=== PATIENT | male | born 1950 | race African-American/Black ===

== ENCOUNTER 2016-07-26 16:08 | Inpatient (IN) | payer OTHER ==
[2016-07-26] MEDS ORDERED: DUONEB (A & A) INH ONE ×2 (16:25→17:34)
[2016-07-26] MEDS ORDERED: DECADRON IV ONE (16:26)
--- NOTE | 2016-07-26 16:40 | PROVIDER DOCUMENTATION ---
HPI-Respiratory General <Amber Blankenship - Last Filed: 07/26/16 17:05> <Yue Ugarte - Last Filed: 07/26/16 18:54> - General Source: patient - History of Present Illness-Resp Quality of Pain: reports: tightness Severity in ED: reports: moderate Onset/Duration: reports: gradual, 3 days ago, 4 days ago Timing: reports: still present, constant Context: reports: multiple patients with similar complaints Cough Quality/Degree: reports: moderate, dry cough Current Respiratory Medication Therapy: Initiated see nurses note Modifying Factors: worse with: coughing, deep breath Associated Symptoms: reports: cough, shortness of breath, short of breath, wheezing, other (diarrhea). denies: chest pain/soreness, fever/chills, flu- like symptoms, headache, heart racing, nasal congestion, nasal drainage Similar Symptoms Previously?: Yes Recently seen or treated by another doctor?: No <Forest Roger - Last Filed: 07/27/16 12:57> - General Chief Complaint: Shortness of Breath Stated Complaint: SOB/COPD Time Seen by Provider: 07/26/16 16:21 Allergies/Adverse Reactions: Patient Allergies Allergy/AdvReac Type Severity Reaction Status Date / Time No Known Allergies Allergy Verified 07/26/16 16:16 Home Medications: Tamsulosin [Flomax] 0.4 mg PO QHS 04/25/16 Tiotropium [place] Inhaler [Spiriva] 1 puff INH RTDAILY 04/25/16 Fluticasone/Salmeterol [Advair 500-50 Diskus] 1 applic IH DAILY 05/24/16 - History of Present Illness-Resp Nature of Presenting Problem: patient is a 65 y/o M that presents to the ER with 3to4 days of cough/congestion , shortness of breath, and diarrhea. patient reports that he has episodes of shortness of breath that gets so bad that causes his diarrhea. Denies weight loss, fever/chills, or chest pain (Forest Roger) Review of Systems - Adult - REVIEW OF SYSTEMS - ADULT Constitutional: denies: chills, fever Eyes: reports: no symptoms reported Ears, Nose, Mouth & Throat: denies: ear discharge, ear pain, sinus problem, throat pain, throat swelling Cardiovascular: denies: chest pain, edema, palpitations, syncope Respiratory: reports: cough, excessive sputum production, shortness of breath, wheezing Gastrointestinal: reports: diarrhea. denies: abdominal pain, nausea, vomiting Genitourinary: reports: no symptoms reported Musculoskeletal: reports: no symptoms reported Integumentary: reports: no symptoms reported Neurological: reports: no symptoms reported Psychiatric: reports: no symptoms reported Endocrine: reports: no symptoms reported Hematologic/Lymphatic: reports: no symptoms reported Allergic/Immunologic: reports: no symptoms reported All Other Systems: Reviewed and Negative <Forest Roger - Last Filed: 07/27/16 12:57> Past History - Adult - PAST MEDICAL HISTORY-ADULT Review of Records: reports: Old Records Reviewed, Nursing Assessment Review, Medications Reviewed Cardiovascular: reports: HTN, hyperlipidemia, other (myocardial perfussion scan ; mild to moderate defects in the inferior wall) Respiratory: reports: asthma, COPD, sleep apnea Gastrointestinal: reports: GERD Genitourinary: reports: prostatitis Musculoskeletal: reports: orthopedic injury 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 Other Conditions: reports: cataract/glaucoma - PRIOR SURGERIES/PROCEDURES Surgical/Procedure History: reports: orthopedic (extremity) - PRIOR HOSPITALIZATIONS Prior Hospitalizations: reports: for similar symptoms - IMMUNIZATION STATUS Childhood Immunizations: See Nurse Assessment Flu Vaccine: See Nurse Assessment - FAMILY HISTORY Family History: reviewed, not pertinent - SOCIAL HISTORY Smoking: cigarettes, less than 1 pack/day Substance Use: marijuana Living Situation: family <Forest Roger - Last Filed: 07/27/16 12:57> Physical Exam-General - PHYSICAL EXAM-ADULT Initial Vital Signs Reviewed: Yes - CONSTITUTIONAL General Appearance: alert, mild distress - EYES Eyes: PERRL/EOMI, pink conjunctivae - HEAD, EARS, NOSE, MOUTH & THROAT HENMT: normocephalic/atraumatic, moist mucous membranes, normal ENT inspection, TMs normal, pharynx normal - NECK Neck: non-tender, full range of motion, normal inspection - RESPIRATORY Respiratory: no respiratory distress, no accessory muscle use, wheezing ( bilateral throughout) - CARDIOVASCULAR Cardiovascular: regular rate, rhythm, no edema, no murmur - GASTROINTESTINAL (ABDOMEN) Abdominal Exam: normal bowel sounds, non tender, soft, no organomegaly, no pulsatile mass - MUSCULOSKELETAL Back Exam: no CVA tenderness, no vertebral tenderness Extremity: normal range of motion, non-tender, normal inspection, no pedal edema - SKIN Integumentary: normal color, warm/dry - NEUROLOGIC Neurologic: grossly normal, no motor/sensory deficits - PSYCHIATRIC Psych/Mental Status: normal mood/affect, normal thought content, normal thought process, oriented x 3 <Forest Roger - Last Filed: 07/27/16 12:57> Progress - EKG 1 Time of EKG reading by physician:: 16:55 EKG Read and Signed by:: Doc Munguia EKG Interpretation (*Must complete 3 of following elements*): Abnormal Rate: 84 Rhythm: sinus rhythm w/marked sinus arrhythmia Fiatt: normal QRS: Q Waves present (v 1, v2,v3,v4) ST Wave: non-specific ST changes <Amber Blankenship - Last Filed: 07/26/16 17:05> - REASSESSMENT Reassessment #1 Time Reassessed: 17:36 (wheezing improved, but still significant. giving another treatment. ) Status: improving - XRAY 1 XRAY: Bilateral XRAY Study: Chest Impression: Abnormal (bilateral bronchitis, reviewed c Dr. Munguia) - CONSULTS/PCP/HOSPITALIST Notification #1 *Consult/PCP/Hospitalist*: Dr. Carroll, hospitalist Time Discussed: 18:58 Reason/Comments: COPD exacerbation, dyspnea Consult Disposition: Admit <Yue Ugarte - Last Filed: 07/26/16 18:54> <Forest Roger - Last Filed: 07/27/16 12:57> - PLAN OF CARE/RESULTS Progress/Plan/Lab Results: Vital Signs Temp Pulse Resp BP Pulse Ox 07/26/16 16:46 84 17 164/097 99 07/26/16 16:32 76 20 96 07/26/16 16:12 97.9 F 99 H 20 178/104 96 No Known Allergies Allergy (Verified 07/26/16 16:16) Albuterol [Albuterol Neb] 2.5 mg INH RTQ4H PRN #1 neb 04/25/16 Prednisone 10 mg PO DAILY #21 tablet 04/25/16 Tamsulosin [Flomax] 0.4 mg PO QHS 04/25/16 Tiotropium [place] Inhaler [Spiriva] 1 puff INH RTDAILY 04/25/16 Amlodipine [Norvasc] 10 mg PO DAILY #30 tablet 05/12/16 Lisinopril/Hydrochlorothiazide [Lisinopril-Hctz 20-12.5 mg Tab] 1 each PO DAILY #30 tablet 05/12/16 Fluticasone/Salmeterol [Advair 500-50 Diskus] 1 applic IH DAILY 05/24/16 Hydrocodone/APAP 5 mg/325 mg [[place]-5] 1 tab PO Q6H PRN PRN #12 tablet 05/24/16 Lansoprazole [Prevacid] 30 mg PO DAILY #30 capsule. 05/24/16 Laboratory 07/26/16 07/26/16 16:35 16:35 WBC 4.19 L RBC 4.79 Hgb 14.2 Hct 42.0 MCV 87.7 MCH 29.6 MCHC 33.8 RDW Std Deviation 13.7 Plt Count 138 MPV 10.3 Immature Gran % (Auto) 0.2 Neut % (Auto) 42.8 Lymph % (Auto) 45.8 [place] % (Auto) 9.3 Eos % (Auto) 1.4 Baso % (Auto) 0.5 Immature Gran # (Auto) 0.01 Neut # (Auto) 1.79 Lymph # (Auto) 1.92 [place] # (Auto) 0.39 Eos # (Auto) 0.06 Baso # (Auto) 0.02 Sodium 139 Potassium 3.2 L Chloride 101 Carbon Dioxide 27 Anion Gap 11 BUN 13 Creatinine 1.1 Estimated GFR/1.73 m2 > 60 BUN/Creatinine Ratio 12 Glucose 102 Calculated Osmolality 278 Calcium 8.9 Total Bilirubin 0.40 AST 21 ALT 16 Alkaline Phosphatase 85 Total Protein 7.4 Albumin 4.1 Globulin 3.0 Albumin/Globulin Ratio 1.0 Orders Category Date Time Status Saline Loc NOW Care 07/26/16 16:25 Active CHEST-2 VIEWS [RAD] Stat Exams 07/26/16 16:25 Taken CBC WITH ELECTRONIC DIFF [HEME] Stat Lab 07/26/16 16:35 Completed COMPREHENSIVE METABOLIC PANEL [CHEM] Stat Lab 07/26/16 16:35 Completed Albuterol 2.5MG/Ipratrop 0.5MG [Duoneb (A & A)] Med 07/26/16 16:25 Discontinued 3 ml INH NOW ONE Albuterol 2.5MG/Ipratrop 0.5MG [Duoneb (A & A)] Med 07/26/16 17:34 Discontinued 3 ml INH NOW ONE Dexamethasone [Decadron] Med 07/26/16 16:26 Discontinued 4 mg IV NOW ONE Aerosol Treatments Routine Oth 07/26/16 17:34 Active Aerosol Treatments Stat Oth 07/26/16 16:26 Completed Aerosol Treatments Stat Oth 07/26/16 17:34 Active EKG [EKG] Stat Ther 07/26/16 16:31 Draft (Yue Ugarte) Vital Signs Temp Pulse Resp BP Pulse Ox 07/27/16 11:27 88 14 07/27/16 07:53 98.5 F 88 28 H 201/92 98 07/27/16 07:40 90 20 92 L 07/27/16 04:00 98 F 79 16 188/97 100 07/27/16 00:00 98.3 F 93 H 20 167/81 95 07/26/16 23:18 107 H 18 96 07/26/16 20:45 107 H 18 186/84 96 07/26/16 20:23 98.3 F 110 H 22 142/088 94 L 07/26/16 19:23 94 H 18 166/098 99 07/26/16 18:05 73 18 97 07/26/16 17:55 73 18 95 07/26/16 16:46 84 17 164/097 99 07/26/16 16:32 76 20 96 07/26/16 16:12 97.9 F 99 H 20 178/104 96 No Known Allergies Allergy (Verified 07/26/16 16:16) Albuterol [Albuterol Neb] 2.5 mg INH RTQ4H PRN #1 neb 04/25/16 Tamsulosin [Flomax] 0.4 mg PO QHS 04/25/16 Tiotropium [place] Inhaler [Spiriva] 1 puff INH RTDAILY 04/25/16 Fluticasone/Salmeterol [Advair 500-50 Diskus] 1 applic IH DAILY 05/24/16 Hydrocodone/APAP 5 mg/325 mg [[place]-5] 1 tab PO Q6H PRN PRN #12 tablet 05/24/16 Lansoprazole [Prevacid] 30 mg PO DAILY #30 capsule. 11/06/16 Amlodipine [Norvasc] 10 mg PO DAILY #30 tablet 07/27/16 Levofloxacin [Levaquin] 500 mg PO DAILY #7 tablet 07/27/16 Prednisone 10 mg PO DAILY #30 tablet 07/27/16 Dietary Diet Heart Healthy Diet Start WedJul 279 I&O 07/26/16 07/27/16 07/28/16 06:59 06:59 06:59 Intake Total 1350 Balance 1350 Laboratory 07/26/16 07/26/16 07/26/16 19:29 18:55 16:35 WBC 4.19 L RBC 4.79 Hgb 14.2 Hct 42.0 MCV 87.7 MCH 29.6 MCHC 33.8 RDW Std Deviation 13.7 Plt Count 138 MPV 10.3 Immature Gran % (Auto) 0.2 Neut % (Auto) 42.8 Lymph % (Auto) 45.8 [place] % (Auto) 9.3 Eos % (Auto) 1.4 Baso % (Auto) 0.5 Immature Gran # (Auto) 0.01 Neut # (Auto) 1.79 Lymph # (Auto) 1.92 [place] # (Auto) 0.39 Eos # (Auto) 0.06 Baso # (Auto) 0.02 Specimen Type ARTERIAL Sample Site R RADIAL pH 7.49 H pCO2 36 pO2 61 HCO3 27.9 H Base Excess 4.1 H Oxyhemoglobin 91.2 L ABG O2 Sat (Calculated) 18.2 ABG O2 Saturation 94.5 L ABG Carboxyhemoglobin 2.50 ABG Methemoglobin 1.0 Von Test YES A-a O2 Difference 44.0 Total Hemoglobin 14.2 Lactate 1.00 Blood Gas Modality ROOM AIR FiO2 % 21.0 Sodium Potassium Chloride Carbon Dioxide Anion Gap BUN Creatinine Estimated GFR/1.73 m2 BUN/Creatinine Ratio Glucose Calculated Osmolality Calcium Total Bilirubin AST ALT Alkaline Phosphatase Total Protein Albumin Globulin Albumin/Globulin Ratio Urine Source CLEAN CATCH Urine Color YELLOW Urine Clarity CLEAR Urine pH 6.5 Ur Specific [place] 1.010 Urine Protein 1+(30 mg/dL) A Urine Ketones NEGATIVE Urine Blood 1+ A Urine Nitrite NEGATIVE Urine Bilirubin NEGATIVE Urine Urobilinogen NORMAL Urine Microscopic RBC <10 Urine WBC 1+ A Urine Microscopic WBC <10 Ur Epithelial Cells <10 Urine Crystals NONE SEEN Urine Bacteria 1+ Urine Casts NONE SEEN Urine Yeast NONE SEEN Urine Glucose NEGATIVE 07/26/16 16:35 WBC RBC Hgb Hct MCV MCH MCHC RDW Std Deviation Plt Count MPV Immature Gran % (Auto) Neut % (Auto) Lymph % (Auto) [place] % (Auto) Eos % (Auto) Baso % (Auto) Immature Gran # (Auto) Neut # (Auto) Lymph # (Auto) [place] # (Auto) Eos # (Auto) Baso # (Auto) Specimen Type Sample Site pH pCO2 pO2 HCO3 Base Excess Oxyhemoglobin ABG O2 Sat (Calculated) ABG O2 Saturation ABG Carboxyhemoglobin ABG Methemoglobin Von Test A-a O2 Difference Total Hemoglobin Lactate Blood Gas Modality FiO2 % Sodium 139 Potassium 3.2 L Chloride 101 Carbon Dioxide 27 Anion Gap 11 BUN 13 Creatinine 1.1 Estimated GFR/1.73 m2 > 60 BUN/Creatinine Ratio 12 Glucose 102 Calculated Osmolality 278 Calcium 8.9 Total Bilirubin 0.40 AST 21 ALT 16 Alkaline Phosphatase 85 Total Protein 7.4 Albumin 4.1 Globulin 3.0 Albumin/Globulin Ratio 1.0 Urine Source Urine Color Urine Clarity Urine pH Ur Specific [place] Urine Protein Urine Ketones Urine Blood Urine Nitrite Urine Bilirubin Urine Urobilinogen Urine Microscopic RBC Urine WBC Urine Microscopic WBC Ur Epithelial Cells Urine Crystals Urine Bacteria Urine Casts Urine Yeast Urine Glucose Orders Category Date Time Status Admit - [facility] Routine AdmDCTranf 07/26/16 18:56 Ordered Does patient desire to be vacc [QM] ONCE Care 07/26/16 21:37 Active Previous Flu Vaccine THIS SEAS [QM] ONCE Care 07/26/16 21:37 Active Saline Loc NOW Care 07/26/16 16:25 Completed Heart Healthy Diet Diet 07/27/16 01:39 Active CHEST-2 VIEWS [RAD] Stat Exams 07/26/16 16:25 Completed ABG [RESP] Routine Lab 07/26/16 18:55 Completed BLOOD CULTURE [BLDCUL] Stat Lab 07/26/16 18:42 Results CBC WITH ELECTRONIC DIFF [HEME] Stat Lab 07/26/16 16:35 Completed COMPREHENSIVE METABOLIC PANEL [CHEM] Stat Lab 07/26/16 16:35 Completed UA [URINALYSIS PL W/POSS RFLX CULT] [URINALYSIS] Stat Lab 07/26/16 19:29 Completed URINE CULTURE [RM] Routine Lab 07/26/16 19:50 Results Acetaminophen [Tylenol] Med 07/27/16 12:42 Active 650 mg PO Q4H PRN PRN Albuterol 2.5MG/Ipratrop 0.5MG [Duoneb (A & A)] Med 07/26/16 16:25 Discontinued 3 ml INH NOW ONE Albuterol 2.5MG/Ipratrop 0.5MG [Duoneb (A & A)] Med 07/26/16 17:34 Discontinued 3 ml INH NOW ONE Albuterol 2.5MG/Ipratrop 0.5MG [Duoneb (A & A)] Med 07/26/16 20:39 Discontinued 3 ml INH Q4H PRN PRN Albuterol [Albuterol Neb] Med 07/26/16 18:00 Discontinued 2.5 mg INH NOW ONE Albuterol [Albuterol Neb] Med 07/27/16 00:22 Active 2.5 mg INH RTQ4H PRN Amlodipine [Norvasc] Med 07/27/16 09:00 Active 10 mg PO DAILY Azithromycin 500 mg/Ns [Zithromax 500 mg/Ns] 250 ml Med 07/26/16 20:39 Discontinued IV NOW Dexamethasone [Decadron] Med 07/26/16 16:26 Discontinued 4 mg IV NOW ONE Fluticasone/[place] 500/50 INH [Advair 500/50 Diskus] Med 07/27/16 09:00 Discontinued 1 puff INH DAILY Fluticasone/[place] 500/50 INH [Advair 500/50 Diskus] Med 07/28/16 07:30 Active 1 puff INH RTDAILY Hydrocodone/APAP 5 mg/325 mg [[place]-5] Med 07/27/16 00:22 Active 1 each PO Q6H PRN PRN Levofloxacin [Levaquin] Med 07/27/16 10:39 Discontinued 500 mg PO NOW ONE Methylprednisolone Sod Succ [Solu-Medrol] Med 07/26/16 20:39 Active 40 mg IV Q6H Omeprazole [Prilosec] Med 07/27/16 07:00 Active 20 mg PO DAILY@0700 Tamsulosin [Flomax] Med 07/27/16 21:00 Active 0.4 mg PO BID Tamsulosin [Flomax] Med 07/27/16 21:00 Discontinued 0.4 mg PO QHS Tiotropium [place] Inhaler [Spiriva] Med 07/27/16 07:30 Active 1 puff INH RTDAILY Aerosol Treatments Routine Oth 07/26/16 17:34 Completed Aerosol Treatments Routine Oth 07/26/16 18:00 Completed Aerosol Treatments Routine Oth 07/26/16 20:39 Completed Aerosol Treatments Stat Oth 07/26/16 16:26 Completed Aerosol Treatments Stat Oth 07/26/16 17:34 Completed Aerosol Treatments Stat Oth 07/26/16 18:00 Completed Aerosol Treatments Stat Oth 07/26/16 20:39 Completed EKG [EKG] Stat Ther 07/26/16 16:31 Draft Transfer/Admit Order [TRANSFER] Routine Transfer 07/26/16 18:56 Completed (Forest Roger) Departure <Amber Blankenship - Last Filed: 07/26/16 17:05> - Departure Time of Disposition Order: 17:57 Certified Medical Emergency: Emergent <Yue Ugarte - Last Filed: 07/26/16 18:54> - Departure Time of Disposition Order: 18:50 Certified Medical Emergency: Emergent <Forest Roger - Last Filed: 07/27/16 12:57> - Departure DIAGNOSIS: COPD exacerbation Disposition: ADMITTED INPATIENT 09 Condition: Stable Attestation - Scribe Verification/Attestation Scribe:: Amber Blankenship Acting as Scribe for:: Doc Munguia Scribe documention review:: This chart was documented by a scribe and accurately reflects the service the provider performed and the decisions made by the provider. <Amber Blankenship - Last Filed: 07/26/16 17:05> - Physician/ Mid-level Attestation Patient care was provided by Mid-level provider (AUDOGRAPH OPERATOR/PA):: Yes Mid-level provider:: Yue Ugarte Mid-level documentation review:: The Mid-level provider documentation, treatment plan and medical decision making was reviewed by the physician who agrees with all treatment and medical decision making by the P. <Yue Ugarte - Last Filed: 07/26/16 18:54> - Scribe Verification/Attestation Scribe:: Forest Roger Acting as Scribe for:: Yue Ugarte Scribe documention review:: This chart was documented by a scribe and accurately reflects the service the provider performed and the decisions made by the provider. - Physician/ Mid-level Attestation Patient care was provided by Mid-level provider (AUDOGRAPH OPERATOR/PA):: Yes Mid-level provider:: Yue Ugarte Mid-level documentation review:: The Mid-level provider documentation, treatment plan and medical decision making was reviewed by the physician who agrees with all treatment and medical decision making by the MLP. <Forest Roger - Last Filed: 07/27/16 12:57> Physician Attestation
[2016-07-26 16:44] LABS: MANUAL DIFF NEEDED? NO
[2016-07-26 16:52] LABS: BASO% 0.5 % (0.0-0.8); EOS# 0.06 X1000 (0.0-0.7); EOS% 1.4 % (0.0-10.0); HEMOGLOBIN 14.2 g/dL (14.0-18.0); IMM GRAN# 0.01 X1000 (0.0-0.04); IMM GRAN% 0.2 % (0.0-0.5); LYMPH# 1.92 X1000 (1.2-3.4); LYMPH% 45.8 % (20.5-51.1); MCH 29.6 PG (27-31); MCHC 33.8 g/dL (33-37); MCV 87.7 FL (81-99); MONO# 0.39 X1000 (0.11-0.59); MONO% 9.3 % (1.7-9.3); MPV 10.3 FL (7.4-10.4); NEUT% 42.8 % (42.2-75.2); PLT 138 X1000 (130-400); RBC 4.79 XMIL (4.7-6.1)
[2016-07-26 17:02] LABS: AGAP 11; ALBUMIN 4.1 g/dL (3.5-5.0); ALKALINE PHOSPHATASE 85 U/L (32-122); BUN 13 mg/dL (8-22); CALCIUM 8.9 mg/dL (8.8-10.2); CHLORIDE 101 mmol/L (98-107); COSMO 278; GOT 21 U/L (10-34); GPT 16 U/L (10-44); POTASSIUM 3.2 mmol/L (3.5-5.1); SODIUM 139 mmol/L (136-145); TCO2 27 mmol/L (25-35); TOTAL PROTEIN 7.4 g/dL (6.3-8.3)
--- NOTE | 2016-07-26 17:02 | EKG Report ---
Test Performed on : 07/26/2016 4:55:06 PM Test Reason : CP Blood Pressure : / mmHG Vent. Rate : 084 BPM Atrial Rate : 084 BPM P-R Int : 154 ms QRS Dur : 084 ms QT Int : 370 ms P-R-T Axes : 074 -04 172 degrees QTc Int : 437 ms Sinus rhythm. with marked sinus arrhythmia. Possible Left atrial enlargement Anteroseptal infarct (cited on or before 07-JUN-2009) ST & T wave abnormality, consider inferolateral ischemia Abnormal ECG When compared with ECG of 24-MAY-2016 03:27, Vent. rate has increased BY 30 BPM T wave inversion less evident in Inferior leads Unconfirmed Result
[2016-07-26] MEDS ORDERED: ALBUTEROL NEB INH ONE (18:00)
[2016-07-26 19:09] LABS: BE 4.1 mmoll (-3.0-3.0); BLOOD TYPE ARTERIAL; DRAW SITE R RADIAL; O2(CT) 18.2 mL/dL (15.0-23.0); PCO2(98.6) 36 mmHg (35-45); PO2(98.6) 61 mmHg (60-100); SAMPLE BLOOD; SAO2 94.5 % (95.0-100.0); THB 14.2 g/dL (11.5-17.4); pH(98.6) 7.49 (7.35-7.45)
[2016-07-26 19:14] LABS: ALLEN TEST YES; MODALITY ROOM AIR
[2016-07-26 19:30] LABS: BILIRUBIN URINE NEGATIVE (NEGATIVE); BLOOD URINE 1+ (NEGATIVE); CLARITY CLEAR (CLEAR); COLOR YELLOW; GLUCOSE URINE NEGATIVE (NEGATIVE); LEUKOCYTES URINE 1+ (NEGATIVE); NITRITE URINE NEGATIVE (NEGATIVE); PH URINE 6.5; PROTEIN URINE 1+(30 mg/dL) mg/dL (NEGATIVE); URINE SOURCE CLEAN CATCH; UROBILINOGEN URINE NORMAL
[2016-07-26 19:50] LABS: URINE CAST NONE SEEN /LPF; URINE CRYSTAL NONE SEEN /HPF; URINE CULTURE PL NEEDED? YES; URINE EPITHELIAL CELLS <10 /HPF (<10); URINE RBC <10 /HPF (<10); URINE WBC <10 /HPF (<10)
[2016-07-26] MEDS ORDERED: ZITHROMAX 500 MG/NS 250 ML IV ONE (20:39)
[2016-07-26] MEDS: SOLU-MEDROL IV SCH (21:20)
[2016-07-26] MEDS: DUONEB (A & A) INH PRN (23:18)
[2016-07-27] MEDS ORDERED: NORCO-5 PO PRN (00:22)
[2016-07-27] MEDS ORDERED: ALBUTEROL NEB INH PRN (00:22)
[2016-07-27] MEDS: SOLU-MEDROL IV SCH ×2 (04:12→08:37)
--- NOTE | 2016-07-27 06:53 | Diag Imaging Result Document ---
PROCEDURE NAME: CHEST-2 VIEWS - 07/26/2016 FRONTAL AND LATERAL CHEST, TWO VIEWS: COMPARISON: Compared to 05/24/2016. FINDINGS: The lungs are hyperexpanded. The heart is not enlarged. The pulmonary vessels are small. No pleural effusions. No consolidation. Mild increased markings in the medial right base. I believe the majority of these represent normal vasculature, however, there may be a small underlying infiltrate. IMPRESSION: 1. Emphysema. 2. I suspect there is a small infiltrate in the medial right base.
[2016-07-27] MEDS ORDERED: PRILOSEC PO SCH (07:00)
[2016-07-27] MEDS ORDERED: SPIRIVA INH SCH (07:30)
[2016-07-27] MEDS: DUONEB (A & A) INH PRN (07:39)
[2016-07-27 07:58] VITALS: BP 201/92
[2016-07-27] MEDS ORDERED: ADVAIR 500/50 DISKUS INH SCH (09:00)
[2016-07-27] MEDS ORDERED: NORVASC PO SCH (09:00)
[2016-07-27] MEDS ORDERED: LEVAQUIN PO ONE (10:39)
[2016-07-27] MEDS ORDERED: TYLENOL PO PRN (12:42)
--- NOTE | 2016-07-27 14:11 | HISTORY AND PHYSICAL ---
CHIEF COMPLAINT: Shortness of breath. HISTORY OF PRESENT ILLNESS: This is a 65-year-old male with history of COPD, presenting with shortness of breath and cough for the last 2 days. He was up at a in [place], exposed to the cold weather. He feels like that triggered breathing difficulty. I think he has had some subjective fevers and chills, cough productive of dark sputum, and came in for evaluation now. He is on breathing treatments. He was given albuterol nebs through the ER. He does not have a primary care doctor. He has seen Dr. Vera in the past. He has been having some issues though with incontinence associated with shortness of breath, especially urinary incontinence. It looks like he already has a diagnosis of BPH and is on Flomax. Came in with wheezing. It was felt necessary to admit him because his wheezing had not improved with consecutive breathing treatments. The following day, his breathing has improved. He is breathing comfortably on room air, 96%. Occasional rhonchi but no wheezing. Clinically he felt stable I think to go home at this point, but admitted for COPD exacerbation. PAST MEDICAL HISTORY: 1. Hypertension. 2. BPH. 3. COPD, not on home oxygen. PAST SURGICAL HISTORY: Denies. FAMILY HISTORY: Reviewed, noncontributory. SOCIAL HISTORY: No ethanol. He smokes up to a pack and a half a day. He has done that for over 25 years. ALLERGIES: No known drug allergies. MEDICATIONS: He is on Flomax, Spiriva, Advair, albuterol nebs, prednisone taper, lisinopril hydrochlorothiazide which may not be the best option for him, Norvasc 10 [place], and Prevacid. PHYSICAL EXAMINATION: VITAL SIGNS: Blood pressure was high 201/92, that was this morning, heart rate of 88, respiratory rate 20, temperature 98.5 degrees, 98% on room air. GENERAL: A well-developed male, in no acute distress. HEAD: Normocephalic, atraumatic. EYES: Pupils equal, round, reactive to light. Extraocular movements were intact. EAR/NOSE/THROAT: Moist mucous membranes. NECK: Supple. CARDIOVASCULAR: Regular rate and rhythm. No murmurs, gallops, or rubs. PULMONARY: Bilateral breath sounds with occasional rhonchi. GI: Soft, nontender, nondistended. Bowel sounds are positive. EXTREMITIES: No clubbing or cyanosis. LYMPHATICS: No peripheral edema. NEUROLOGICAL: Nonfocal. LABORATORY DATA: White count is normal. Chemistry showed a potassium of 3.2 which I hope was supplemented. PROBLEM LIST: 1. Chronic obstructive pulmonary disease exacerbation. Chest x-ray is clear. He is clinically improved with breathing treatments, azithromycin and nebulizer. He may have some early pneumonia it looks like at the right base. We will continue antibiotics, steroids. I think clinically he is improving and can discharge him. I will probably discharge him on doxycycline just to give him a weeks' worth of treatment. I will just do Levaquin I think for 7 days. The patient has clinically stabilized and will discharge him home. 2. Hypertension. I am going to adjust his medications just because of the lisinopril may predispose him to cough, so we will start losartan instead. 3. Benign prostatic hypertrophy. He is still symptomatic. We will refer him to . He has seen Dr. Dash in the past. We will send him back to Dr. Blankenship' clinic and increase his Flomax to b.i.d. DISPOSITION: Likely home today.
--- NOTE | 2016-07-27 14:11 | DISCHARGE SUMMARY ---
DISCHARGE DIAGNOSES: 1. Chronic obstructive pulmonary disease exacerbation. 2. Early right middle lobe pneumonia. 3. Benign prostatic hypertrophy. 4. Hypertension. ADMIT DIAGNOSIS: Chronic obstructive pulmonary disease exacerbation. HISTORY AND HOSPITAL COURSE: Briefly, this is a 65-year-old male with COPD, presenting with exacerbation for last 2 days. Significant wheezing in the ER, did not improve with breathing treatments, but within 24 hours has improved with the breathing treatments, steroids, and antibiotics. There is a questionable early right middle lobe infiltrates so we will adjust his antibiotics to Levaquin and follow. DISCHARGE MEDICATIONS: Flomax 0.4 b.i.d., Spiriva daily, Advair 550 b.i.d., albuterol nebs q.6, [place] p.r.n., Prevacid 30 daily, losartan 100 daily, will probably do 50 daily. For some reason he is not on Norvasc so will start Norvasc 10 daily. DISPOSITION: Follow up with PCP; we need to set 1 up. Follow up with Dr. Vera in 1-2 weeks. Follow up with Dr. Blankenship in 1-2 weeks. TIME SPENT: 32 minute discharge. -1
[2016-07-27] MEDS ORDERED: FLOMAX PO SCH ×2 (21:00)
[2016-07-28] MEDS ORDERED: ADVAIR 500/50 DISKUS INH SCH (07:30)
== END 2016-07-27 15:18 | disposition home or self-care (01) | DRG 190 ==
LOC: P.ED 16:08 → OBSVTOIN 19:48 → P.MEDSURG 19:48
PROVIDERS: ATTEND Internal Medicine
DX: J44.0 Chronic obstructive pulmonary disease with (acute) lower respiratory infection (principal); J18.9 Pneumonia, unspecified organism; J44.1 Chronic obstructive pulmonary disease with (acute) exacerbation; J45.909 Unspecified asthma, uncomplicated; I10 Essential (primary) hypertension; E78.5 Hyperlipidemia, unspecified; K21.9 Gastro-esophageal reflux disease without esophagitis; G47.30 Sleep apnea, unspecified; N40.0 Benign prostatic hyperplasia without lower urinary tract symptoms; F17.210 Nicotine dependence, cigarettes, uncomplicated; Z79.899 Other long term (current) drug therapy; Z79.52 Long term (current) use of systemic steroids
CPT/HCPCS: 71020; 80053; 81001; 82805; 85025; 87040; 87088; 93005; 94640; 94761; 96372; J0456; J1100; J2920

== ENCOUNTER 2018-11-10 09:39 | Inpatient (IN) ==
[2018-11-10] MEDS ORDERED: ASPIRIN PO ONE (10:15)
--- NOTE | 2018-11-10 10:31 | EKG Report ---
Test Performed on : 11/10/2018 09:48:03 AM Test Reason : CP Blood Pressure : / mmHG Vent. Rate : 085 BPM Atrial Rate : 085 BPM P-R Int : 148 ms QRS Dur : 090 ms QT Int : 354 ms P-R-T Axes : 055 003 166 degrees QTc Int : 421 ms Normal sinus rhythm. Cannot rule out Anteroseptal infarct (cited on or before 07-JUN-2009) T wave abnormality, consider lateral ischemia Abnormal ECG When compared with ECG of 25-MAY-2018 17:30, Nonspecific T wave abnormality now evident in Inferior leads Unconfirmed Result
--- NOTE | 2018-11-10 10:31 | Diag Imaging Result Doc PS360 ---
CHEST-2 VIEWS - 11/10/2018 INDICATION: CP COMPARISON: 04/20/2018 FINDINGS: There is dense focal infiltrate in the superior segment of the right lower lobe. There is also some hazy infiltrate in the left lower lobe. Heart size and pulmonary vascularity is normal. No pneumothorax or pleural effusion. IMPRESSION: Bilateral infiltrates compatible with pneumonia. Recommend treatment and short-term follow-up chest x-ray in one-2 weeks. Electronically signed by Jarord Echevarria 11/10/2018 10:29 AM
[2018-11-10 11:04] LABS: BASO# 0.01 X1000 (0.0-0.2); BASO% 0.2 % (0.0-0.8); EOS# 0.03 X1000 (0.0-0.7); EOS% 0.6 % (0.0-10.0); HEMATOCRIT 37.8 % (42.0-52.0); HEMOGLOBIN 12.5 g/dL (14.0-18.0); IMM GRAN# 0.03 X1000 (0.0-0.04); IMM GRAN% 0.6 % (0.0-0.5); LYMPH# 0.52 X1000 (1.2-3.4); LYMPH% 10.4 % (20.5-51.1); MCH 29.7 PG (27-31); MCHC 33.1 g/dL (33-37); MCV 89.8 FL (81-99); MONO# 0.26 X1000 (0.11-0.59); MONO% 5.2 % (1.7-9.3); MPV 9.7 FL (7.4-10.4); NEUT# 4.16 X1000 (1.4-6.5); PLT 182 X1000 (130-400); RBC 4.21 XMIL (4.7-6.1); RDW 14.4 % (11.5-14.5); WBC 5.01 X1000 (4.8-10.8)
[2018-11-10 11:13] LABS: INR 0.85; PROTIME 12.3 Seconds (11.0-16.0)
[2018-11-10 11:14] LABS: PTT 25.5 Seconds (22.3-41.8)
[2018-11-10 11:33] LABS: AGAP 10; ALB/GLOB RATIO 1.8; ALBUMIN 4.2 g/dL (3.5-5.0); ALKALINE PHOSPHATASE 53 U/L (32-122); BUN 26 mg/dL (8-22); CHLORIDE 106 mmol/L (98-107); CK PROFILE 163 U/L (24-204); COSMO 291; CREATININE 1.2 mg/dL (0.7-1.2); ESTIMATED GFR > 60; GLUCOSE 116 mg/dL (70-104); GOT 14 U/L (10-34); GPT 17 U/L (10-44); SODIUM 143 mmol/L (136-145); TCO2 27 mmol/L (25-35); TOTAL BILIRUBIN 0.22 mg/dL (0.20-1.00); TOTAL PROTEIN 6.5 g/dL (6.3-8.3)
--- NOTE | 2018-11-10 12:49 | PROVIDER DOCUMENTATION ---
This chart was entered by Nini Clay Scribe, acting as scribe for Justen Salmeron MD. HPI-Chest Pain - General Chief Complaint: Chest Pain Stated Complaint: CP Time Seen by Provider: 11/10/18 10:27 Source: patient Allergies/Adverse Reactions: Patient Allergies Allergy/AdvReac Type Severity Reaction Status Date / Time No Known Allergies Allergy Verified 11/10/18 10:40 Home Medications: Home Medication List Medication Instructions Recorded Confirmed Last Taken Type Tamsulosin [Flomax] 0.4 mg PO QHS 04/25/16 10/17/17 10/17/17 08:00 History Tiotropium [place] Inhaler 1 puff INH RTDAILY 04/25/16 10/17/17 10/17/17 08:00 History [Spiriva] Fluticasone/Salmeterol [Advair 1 applic IH BID 05/24/16 10/17/17 10/17/17 08:00 History 500-50 Diskus] Amlodipine [Norvasc] 10 mg PO DAILY #30 tablet 07/27/16 10/17/17 10/17/17 08:00 Rx Lisinopril/Hydrochlorothiazide 1 each PO DAILY 01/28/17 10/17/17 10/17/17 08:00 History [Lisinopril-Hctz 20-25 mg Tab] Ipratropium/Albuterol Sulfate 3 ml IH PRN PRN 03/17/17 10/17/17 03/23/17 History [Iprat-Albut 0.5-3(2.5) mg/3 ml] Montelukast Sodium [Singulair] 10 mg PO DAILY 03/17/17 10/17/17 10/17/17 08:00 History Roflumilast [Daliresp] 500 mcg PO DAILY 03/17/17 10/17/17 10/17/17 08:00 History Hydrocodone/APAP 7.5 mg/325 mg 1 ea PO Q6H PRN PRN #15 tab 10/17/17 Unknown Rx [Milmay-7.5] Ibuprofen [Motrin] 600 mg PO Q6HR #30 tab 09/13/18 Unknown Rx - History of Present Illness-CP Nature of Presenting Problem: Patient is a 68 year old male who presents with left side chest pain that radiates to jaw that started this morning. Reports shortness of breath with chest pain. Denies nausea and vomiting. Reports he is currently receiving chemo for lung cancer every 2 weeks. Location: reports: other (left side) Chest Pain Radiation: reports: jaw Quality of Pain: reports: aching Severity in ED: mild Onset/Duration: this morning Timing: still present, getting worse Context/Activities at Onset: reports: light activity Modifying Factors: improves with: nothing Associated Symptoms: reports: shortness of breath Similar Symptoms Previously?: No Recently Seen Here or By Another Healthcare Provider: Yes Review of Systems - Adult - REVIEW OF SYSTEMS - ADULT Constitutional: reports: no symptoms reported. denies: chills, fever, fatique Eyes: reports: no symptoms reported Ears, Nose, Mouth & Throat: reports: no symptoms reported Cardiovascular: reports: see HPI, chest pain. denies: heart murmur, irregular heart rate Respiratory: reports: see HPI, shortness of breath. denies: cough, wheezing Gastrointestinal: reports: no symptoms reported Genitourinary: reports: no symptoms reported Musculoskeletal: reports: no symptoms reported Integumentary: reports: no symptoms reported Neurological: reports: no symptoms reported Psychiatric: reports: no symptoms reported Endocrine: reports: no symptoms reported Hematologic/Lymphatic: reports: no symptoms reported Allergic/Immunologic: reports: no symptoms reported All Other Systems: Reviewed and Negative Past History - Adult - PAST MEDICAL HISTORY-ADULT Review of Records: reports: Nursing Assessment Review, Medications Reviewed, Social history reviewed & non-contributory. 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 negative: cachetic, lethargic, slow to respond - HEAD, EARS, NOSE, MOUTH & THROAT HENMT: normal ENT inspection. negative: angioedema, hearing deficit - RESPIRATORY Respiratory: chest non-tender, lungs clear, normal breath sounds. negative: crackles, rhonchi - CARDIOVASCULAR Cardiovascular: normal peripheral pulses, regular rate, rhythm. negative: tachycardia, systolic murmur - GASTROINTESTINAL (ABDOMEN) Abdominal Exam: normal bowel sounds, non tender, soft. negative: guarding, rebound - MUSCULOSKELETAL Extremity: non-tender, normal inspection. negative: deformity, erythema, swelling - SKIN Integumentary: normal color, normal turgor, warm/dry. negative: cyanosis, ecchymosis, erythema, jaundice - NEUROLOGIC Neurologic: grossly normal. negative: aphasia, facial droop - PSYCHIATRIC Psych/Mental Status: normal mood/affect, oriented x 3. negative: anxious Progress - PLAN OF CARE/RESULTS Progress/Plan/Lab Results: Vital Signs - 8 hr 11/10/18 09:51 11/10/18 10:01 11/10/18 10:10 Temperature 98.0 F Pulse Rate 78 86 85 Respiratory Rate 20 17 19 Blood Pressure 136/76 157/93 O2 Sat by Pulse Oximetry 98 96 95 11/10/18 10:20 11/10/18 10:30 11/10/18 10:31 Temperature Pulse Rate 87 109 H 105 H Respiratory Rate 16 19 17 Blood Pressure 151/92 O2 Sat by Pulse Oximetry 95 96 95 11/10/18 10:40 11/10/18 10:48 11/10/18 10:50 Temperature Pulse Rate 89 79 87 Respiratory Rate 14 18 19 Blood Pressure 149/81 O2 Sat by Pulse Oximetry 96 96 95 11/10/18 11:00 11/10/18 11:02 11/10/18 11:10 Temperature Pulse Rate 75 79 79 Respiratory Rate 19 22 22 Blood Pressure 185/90 O2 Sat by Pulse Oximetry 96 97 97 11/10/18 11:20 11/10/18 11:30 11/10/18 11:32 Temperature Pulse Rate 83 71 72 Respiratory Rate 16 12 12 Blood Pressure 161/80 O2 Sat by Pulse Oximetry 95 94 L 95 11/10/18 12:02 11/10/18 12:30 11/10/18 12:32 Temperature Pulse Rate 69 76 75 Respiratory Rate 12 19 19 Blood Pressure 145/81 137/93 O2 Sat by Pulse Oximetry 97 97 97 11/10/18 12:40 11/10/18 12:50 11/10/18 13:00 Temperature Pulse Rate 77 88 77 Respiratory Rate 18 24 18 Blood Pressure O2 Sat by Pulse Oximetry 97 96 95 11/10/18 13:02 Temperature Pulse Rate 75 Respiratory Rate 20 Blood Pressure 142/80 O2 Sat by Pulse Oximetry 93 L Laboratory Results - last 24 hr 11/10/18 11/10/18 11/10/18 10:49 10:49 10:49 WBC 5.01 RBC 4.21 L Hgb 12.5 L Hct 37.8 L MCV 89.8 MCH 29.7 MCHC 33.1 RDW Std Deviation 14.4 Plt Count 182 MPV 9.7 Immature Gran % (Auto) 0.6 H Neut % (Auto) 83.0 H Lymph % (Auto) 10.4 L [place] % (Auto) 5.2 Eos % (Auto) 0.6 Baso % (Auto) 0.2 Immature Gran # (Auto) 0.03 Neut # (Auto) 4.16 Lymph # (Auto) 0.52 L [place] # (Auto) 0.26 Eos # (Auto) 0.03 Baso # (Auto) 0.01 PT INR PTT (Actin FS) Sodium 143 Potassium 4.0 Chloride 106 Carbon Dioxide 27 Anion Gap 10 BUN 26 H Creatinine 1.2 Estimated GFR/1.73 m2 > 60 BUN/Creatinine Ratio 22 Glucose 116 H Calculated Osmolality 291 Calcium 9.0 Total Bilirubin 0.22 AST 14 ALT 17 Alkaline Phosphatase 53 Creatine Kinase 163 Troponin T [id number] Pept 60 Total Protein 6.5 Albumin 4.2 Globulin 2.3 Albumin/Globulin Ratio 1.8 11/10/18 11/10/18 10:49 10:49 WBC RBC Hgb Hct MCV MCH MCHC RDW Std Deviation Plt Count MPV Immature Gran % (Auto) Neut % (Auto) Lymph % (Auto) [place] % (Auto) Eos % (Auto) Baso % (Auto) Immature Gran # (Auto) Neut # (Auto) Lymph # (Auto) [place] # (Auto) Eos # (Auto) Baso # (Auto) PT 12.3 INR 0.85 PTT (Actin FS) 25.5 Sodium Potassium Chloride Carbon Dioxide Anion Gap BUN Creatinine Estimated GFR/1.73 m2 BUN/Creatinine Ratio Glucose Calculated Osmolality Calcium Total Bilirubin AST ALT Alkaline Phosphatase Creatine Kinase Troponin T < 0.010 [id number] Pept Total Protein Albumin Globulin Albumin/Globulin Ratio Orders Category Date Time Status Cardiac Monitoring DIRECTED Care 11/10/18 10:15 Active Oxygen Therapy- ED Nursing DIRECTED Care 11/10/18 10:15 Active Saline Loc NOW Care 11/10/18 10:15 Active CHEST-2 VIEWS [RAD] Stat Exams 11/10/18 10:15 Completed BLOOD CULTURE [BLDCUL] Stat Lab 11/10/18 13:03 Received CBC WITH ELECTRONIC DIFF [HEME] Stat Lab 11/10/18 10:49 Completed CK PROFILE [SP CHEM] Stat Lab 11/10/18 10:49 Completed COMPREHENSIVE METABOLIC PANEL [CHEM] Stat Lab 11/10/18 10:49 Completed PRO B-NATRIURETIC PEPTIDE Stat Lab 11/10/18 10:49 Completed PROTIME WITH INR [COAG] Stat Lab 11/10/18 10:49 Completed PTT [COAG] Stat Lab 11/10/18 10:49 Completed TROPONIN T Stat Lab 11/10/18 10:49 Completed TROPONIN T Stat Lab 11/10/18 13:02 Received Aspirin Med 11/10/18 10:15 Discontinued 325 mg PO NOW ONE CefTRIAXONE [Rocephin] 1 gm Med 11/10/18 13:18 Active 0.9% Sodium Chloride Inj [Ns] 50 ml IV NOW CP/SOB/Palp >45 yrs of Age Stat Oth 11/10/18 10:15 Ordered EKG [EKG] Stat Ther 11/10/18 10:15 Draft EKG [EKG] Stat Ther 11/10/18 12:46 Draft Result Diagrams: 11/10/18 10:49 11/10/18 10:49 - EKG 1 Time of EKG reading by physician:: 09:48 EKG Read and Signed by:: Justen Salmeron EKG Interpretation (*Must complete 3 of following elements*): Abnormal (T wave abnormality, consider lateral ischemia) Rate: 85 Rhythm: normal sinus rhythm AL Interval: normal Comments: cannot rule out anteroseptal infarct, age undetermined 2 Time of EKG reading by physician:: 12:55 EKG Read and Signed by:: Justen Salmeron EKG Interpretation (*Must complete 3 of following elements*): Abnormal (T wave abnormality, consider inferolateral ischemia) Rate: 71 Rhythm: sinus rhythm with premature atrial complexes Comments: septal infarct, age undetermined; - XRAY 1 XRAY Study: Chest Impression: See EMR Report ( CHEST-2 VIEWS - 11/10/2018 INDICATION: CP COMPARISON: 04/20/2018 FINDINGS: There is dense focal infiltrate in the superior segment of the right lower lobe. There is also some hazy infiltrate in the left lower lobe. Heart size and pulmonary vascularity is normal. No pneumothorax or pleural effusion. IMPRESSION: Bilateral infiltrates compatible with pneumonia. Recommend treatment and short-term follow-up chest x-ray in one-2 weeks. Electronically signed by Jarrod Echevarria 11/10/2018 10:29 AM 11/10/18 1029 Interpreting Physician: Jarrod Echevarria MD Dictated Date/Time: 11/10/18 1028 cc: Melissa Terrell; Bernie Ruiz MD) - CONSULTS/PCP/HOSPITALIST Notification #1 *Consult/PCP/Hospitalist*: MARCE Kramer for Hospitalist Time Discussed: 12:42 Reason/Comments: Dr. Salmeron consulted with Nia about patient. Consult Disposition: Will see in ED, Admit Departure - Departure Date of Disposition Decision: 11/10/18 Time of Disposition Decision: 12:43 DIAGNOSIS: Chest pain, Pneumonia Disposition: ADMITTED INPATIENT 09 Certified Medical Emergency: Emergent Condition: Fair Referrals and Follow-Ups: Bernie Ruiz MD [Primary Care Provider] - - Critical Care Note This patient required my direct & personal management of CC.: No Attestation - Physician/ AKILA Attestation Patient care was provided by Advanced Practice Provider:: No The physician spent face to face time with patient:: Yes Advanced Practice Provider documentation review:: Supervising physician onsite and consulted in the evaluation and care of this patient. The physician did have a face to face encounter with the patient. This chart was documented by the indicated scribe, (Nini Clay Scribe) and accurately reflects the services I performed and decisions made by me, Justen Salmeron MD, as attested by the provider's signature.
--- NOTE | 2018-11-10 13:00 | EKG Report ---
Test Performed on : 11/10/2018 12:55:29 PM Test Reason : cp Blood Pressure : / mmHG Vent. Rate : 071 BPM Atrial Rate : 071 BPM P-R Int : 148 ms QRS Dur : 082 ms QT Int : 394 ms P-R-T Axes : 052 012 210 degrees QTc Int : 428 ms Sinus rhythm. with premature atrial complexes. Septal infarct (cited on or before 07-JUN-2009) T wave abnormality, consider inferolateral ischemia Abnormal ECG When compared with ECG of 10-NOV-2018 09:48, (Unconfirmed) premature atrial complexes. are now present Questionable change in initial forces of Septal leads T wave inversion now evident in Inferior leads Unconfirmed Result
[2018-11-10] MEDS ORDERED: ROCEPHIN 1 GM in NS 50 ML IV ONE (13:18)
[2018-11-10] MEDS ORDERED: MORPHINE IV PRN (14:41)
[2018-11-10] MEDS ORDERED: TYLENOL PO PRN (14:41)
[2018-11-10] MEDS ORDERED: NITROGLYCERIN SL PRN (14:41)
[2018-11-10] MEDS ORDERED: DUONEB (A & A) INH PRN ×2 (14:44→19:40)
[2018-11-10] MEDS ORDERED: NORCO-7.5 PO PRN (14:44)
--- NOTE | 2018-11-10 17:26 | HISTORY AND PHYSICAL ---
PRIMARY CARE PROVIDER: No one. CHIEF COMPLAINT: Chest pain. HISTORY OF PRESENT ILLNESS: Mr. Jose Duncan is a 68-year-old -[place] male with a medical history of right middle lobe lung cancer followed by Dr. Padgett and was diagnosed in March 2018. Apparently he has a chronic right chest pain underneath the right breast area but he states he is having chest pain that is more midsternal over the past month. It is usually worse in the mornings. He gets an acid taste in his mouth and it feels like it does radiate into the jaw and causes dizziness and lightheadedness. He has a cough that is nonproductive. He denies any fevers or chills. The right chest pain he states is worse with inspiration. For the cancer he gets a medication that is IV every 2 weeks. He is unsure what the name of the medication is. We will consult Dr. Padgett. Will do serial cardiac enzymes, echocardiogram and he does have a little bit of edema in the lower extremities, but it is not bad. He is chest pain free at this time. Will do a stress test in the morning if we need to and can consult Cardiology. PAST MEDICAL HISTORY: 1. Hypertension. 2. BPH. 3. COPD no home oxygen. 4. Obstructive sleep apnea and wears CPAP at night. 5. Lung cancer in the right middle lobe followed by Dr. Padgett, diagnosed in March 2018. No surgeries. He has been getting medication every 2 weeks IV and states he is due for one tomorrow. 6. Right chronic chest pain in the location of the lung cancer. States this has been going on for a long time. PAST SURGICAL HISTORY: 1. He has had a right lung biopsy. 2. Bilateral eye laser surgery for cataracts. 3. Transurethral resection of the prostate. SOCIAL HISTORY: Quit smoking in March 2018 but prior to that he smoked one pack per day since the age of 12. He denies alcohol or illicit drug use. FAMILY HISTORY: Mother had leukemia. He is not sure of father. ALLERGIES: No known drug allergies. HOME MEDICATIONS: 1. Hydralazine 25 mg p.o. t.i.d. 2. Hydrochlorothiazide 25 mg p.o. t.i.d. 3. Durvalumab (which he gets every 2 weeks IV). 4. Albuterol and Atrovent nebulizers every 3 hours as needed. 5. Lisinopril 40 mg p.o. daily. 6. Neurontin 300 mg p.o. nightly. 7. Prednisone 20 mg p.o. as directed. 8. Singulair 10 mg p.o. daily. 9. Zofran 8 mg p.o. every 8 hours p.r.n. 10.Motrin 600 mg p.o. every 6 hours p.r.n. 11.[place]ission 7.5 mg one tablet every 6 hours p.r.n. 12.Norvasc 10 mg p.o. daily. REVIEW OF SYSTEMS: A 14-point review of systems complete and all negative except for those mentioned in the above HPI. PHYSICAL EXAMINATION: VITAL SIGNS: Temperature 98.0, heart rate 69, respiratory rate 16, blood pressure 144/95. O2 saturation 97% on 2 L nasal cannula. He is 6 feet 0 inches tall, 197 pounds. BMI 26.7. GENERAL: Mr. Jose Duncan is a 68-year-old -[place] male in no acute distress. He is able to answer questions appropriately. HEENT: Atraumatic. Normocephalic. Pupils equal, round and reactive to light. Extraocular movements are intact. Mucous membranes are moist. Poor dentition. NECK: Trachea is midline. LUNGS: Clear to auscultation bilateral breath sounds. No accessory muscle use or work with breathing noted. CARDIOVASCULAR: S1 and S2. Regular rate and rhythm. No rubs, gallops or murmurs. He has 1+ lower extremity ankle edema. Posterior dorsalis and radial pulses negative JVD or carotid bruits. ABDOMEN: Soft. Nontender. Nondistended. Positive bowel sounds x4. EXTREMITIES: He moves all extremities equally with full range of motion. NEUROLOGIC: Alert and oriented x3. Follows commands. Sensory intact. SKIN: Warm, dry and intact. LABORATORY DATA: White blood cells 5000, hemoglobin 12, hematocrit 37, platelet count 182. INR 0.85, PTT 25.5, sodium 143, potassium 4.0, BUN 26, creatinine 1.2, glucose 116, calcium 9.0, bilirubin 0.22, AST 14, ALT 17. CK 146, troponin less than 0.1 x2. Pro-BNP 60. Albumin 4.2. IMAGING: A chest x-ray with bilateral infiltrates compatible with pneumonia. Recommend treatment and short-term followup chest x-ray in 1 or 2 weeks. EKG; first EKG rate 85, QTc 421, normal sinus rhythm. There may have been some ST elevation noted in V1 but there is only one lead. There were no contiguous leads that went with it, so a repeat EKG was performed. It was a rate of 71, QTc 428. It still only looks like there is one contiguous lead with ST elevation so it looks like V1. ASSESSMENT AND PLAN: 1. Atypical chest pain. It almost sounds like it could be gastrointestinal related as it mostly happens in the mornings after he has woken up. He does get dizzy and lightheaded with it. He has a cough that is nonproductive. It could be related to where his lung cancer is. Cardiac enzymes are negative so far. There were some questionable T wave ST-T elevation in V1 but it did not appear to be in any other contiguous leads. Will order a stress test in the morning and have Cardiology see him for any other recommendations. Keep him on aspirin. Check his cholesterol and hemoglobin A1c in the morning. Do serial cardiac enzymes. 2. Hypertension. He was on and off antihypertensives. Currently I am going to hold the hydrochlorothiazide. Continue the amlodipine and the hydralazine scheduled and also the lisinopril. Will monitor the blood pressure. 3. Chronic obstructive pulmonary disease. No home oxygen. No exacerbation noted. Will continue with his p.r.n. albuterol and Atrovent nebulizers as needed. 4. Benign prostatic hypertrophy. I do not see here he is on any medicine for that. 5. History of obstructive sleep apnea. He says he wears CPAP at night. He can resume that as well. 6. Lung cancer history. Will consult Dr. Padgett. Apparently he is on an IV medication every 2 weeks. 7. Deep vein thrombosis prophylaxis, Lovenox. Dictated by MARCE King for Bismark Carroll MD cc: MARCE King MD
[2018-11-10] MEDS: APRESOLINE PO SCH (17:45)
[2018-11-10] MEDS: SODIUM CHLORIDE 0.9% INJ SCH (17:45)
[2018-11-10] MEDS: PROTONIX IV SCH (17:45)
--- NOTE | 2018-11-10 20:37 | HISTORY AND PHYSICAL ---
ADDENDUM: Chief complaint was chest pain. He noticed chest pain earlier today with pain on the left side of his chest radiating to his jaw. He had associated discomfort. He reports no cardiac history in the past, but it sounds like he had a history of cardiac arrest, and he went to [facility] where he was diagnosed with lung cancer. I do not know the other circumstances there. We may need to get those records, but he is having issues with that. He still reports pain with deep inspiration. We will probably do a CT of his chest just to better evaluate it. It reports here that he has pneumonia, but I do not know how this is in relationship to his other air space disease, but reportedly he has a dense lesion, but I do not know if that is true pneumonia or if that is something else. I am going to pursue a CT with contrast since he has a pneumonia and since he has a cancer history. There was no resection and he has gotten chemotherapy and radiation therapy, so we will get a better look there. Trying to get records from [facility] as well, but he is undergoing an echocardiogram and myocardial perfusion scan when available. Exam reveals some wheezing and expiratory wheezes. We will go ahead and initiate some therapy for that, and we will follow closely. This is a [id number] encounter note with Niajohn Lee. cc: Bismark Carroll MD
[2018-11-10] MEDS: DUONEB (A & A) INH SCH (23:42)
[2018-11-11] MEDS: PROTONIX IV SCH ×2 (02:53→16:17)
[2018-11-11] MEDS: SODIUM CHLORIDE 0.9% INJ SCH ×2 (02:53→16:17)
[2018-11-11] MEDS: PRILOSEC PO SCH (06:35)
[2018-11-11 07:38] LABS: BASO# 0.01 X1000 (0.0-0.2); BASO% 0.2 % (0.0-0.8); EOS# 0.05 X1000 (0.0-0.7); EOS% 1.1 % (0.0-10.0); HEMATOCRIT 37.5 % (42.0-52.0); HEMOGLOBIN 12.1 g/dL (14.0-18.0); LYMPH# 1.01 X1000 (1.2-3.4); LYMPH% 23.2 % (20.5-51.1); MCHC 32.3 g/dL (33-37); MCV 92.8 FL (81-99); MONO# 0.56 X1000 (0.11-0.59); MONO% 12.9 % (1.7-9.3); MPV 9.5 FL (7.4-10.4); NEUT# 2.72 X1000 (1.4-6.5); NEUT% 62.6 % (42.2-75.2); PLT 168 X1000 (130-400); RBC 4.04 XMIL (4.7-6.1); RDW 14.6 % (11.5-14.5); WBC 4.35 X1000 (4.8-10.8)
[2018-11-11 07:55] LABS: HEMOGLOBIN A1C 5.6 % (4.8-6.0)
[2018-11-11 08:04] LABS: AGAP 9; ALB/GLOB RATIO 1.4; ALBUMIN 3.6 g/dL (3.5-5.0); ALKALINE PHOSPHATASE 50 U/L (32-122); BUN 22 mg/dL (8-22); CALCIUM 8.6 mg/dL (8.8-10.2); CHLORIDE 108 mmol/L (98-107); COSMO 292; CREATININE 1.1 mg/dL (0.7-1.2); ESTIMATED GFR > 60; GLUCOSE 93 mg/dL (70-104); GOT 12 U/L (10-34); GPT 14 U/L (10-44); POTASSIUM 3.7 mmol/L (3.5-5.1); SODIUM 145 mmol/L (136-145); TCO2 28 mmol/L (25-35); TOTAL BILIRUBIN 0.23 mg/dL (0.20-1.00); TOTAL PROTEIN 6.2 g/dL (6.3-8.3)
--- NOTE | 2018-11-11 08:11 | EKG Report ---
Test Performed on : 11/11/2018 07:36:38 AM Test Reason : chest pain Blood Pressure : / mmHG Vent. Rate : 086 BPM Atrial Rate : 086 BPM P-R Int : 152 ms QRS Dur : 086 ms QT Int : 366 ms P-R-T Axes : 060 028 206 degrees QTc Int : 437 ms Normal sinus rhythm. Septal infarct (cited on or before 07-JUN-2009) T wave abnormality, consider inferior ischemia T wave abnormality, consider anterolateral ischemia Abnormal ECG When compared with ECG of 10-NOV-2018 12:55, (Unconfirmed) premature atrial complexes. are no longer present Questionable change in initial forces of Septal leads Confirmed by Lubna ROSENBAUM, Mesfin ([id number]) on 11/11/2018 8:44:31 AM
[2018-11-11 08:21] LABS: INR 0.96; PROTIME 13.6 Seconds (11.0-16.0); PTT 25.8 Seconds (22.3-41.8)
[2018-11-11] MEDS: DUONEB (A & A) INH SCH ×5 (09:37→23:07)
--- NOTE | 2018-11-11 09:59 | Diag Imaging Result Doc PS360 ---
EXAM: CT THORAX W/CONTRAST INDICATION: pneumonia, hx lung cancer TECHNIQUE: This exam was performed using automated exposure control, adjustment of mA or kV according to patient size, and/or use of iterative reconstruction technique. COMPARISON: CT PET scan from an outside facility dated 08/18/2018. FINDINGS: The airspace consolidation in the right lung mainly in the perihilar and infrahilar regions seen on the previous study is still present but is less extensive. It was hypermetabolic on the previous study. This may, at least in part, represent radiotherapy pneumonitis that has improved. As was stated on the previous report from the PET scan, underlying neoplasm being obscured by the consolidation cannot be excluded. Mild/moderate pulmonary emphysema is again noted. In the right hilar region, there is a nodular density on image 53 of series 2 that measures 2.2 x 1.9 cm axially. It is not clearly identified on the previous unenhanced head CT. Lymphadenopathy or intercurrent perihilar mass cannot be excluded. No other new lymphadenopathy or new parenchymal lung mass is appreciated. It is no pleural fluid collection and no pneumothorax. Limited views of the upper abdomen are essentially unremarkable. No new bony lesions are appreciated to indicate local bony metastatic disease. IMPRESSION: 1.Persistent consolidation in the right perihilar/infrahilar region on the right that has improved overall during the interval and may represent improving radiation pneumonitis. 2.Nodular focus in the right hilar region not identified on the previous study. New lymphadenopathy or recurrent perihilar neoplasm cannot be excluded. 3.Otherwise, the chest is essentially stable. Electronically signed by Leroy Cole 11/11/2018 9:57 AM
--- NOTE | 2018-11-11 11:12 | ECHO REPORT ---
ORDER DATE: 11/10/2018 PROCEDURE: 2D echocardiogram. SUMMARY OF THE 2-DIMENSIONAL IMAGIN. Technically suboptimal study. Poor acoustic window. 2. Pulmonic valve not well visualized. 3. Aortic valve leaflets were trileaflet. 4. Mitral valve was normal. 5. Tricuspid valve was normal. 6. Normal left ventricular cavity size. Estimated ejection fraction of 65 to 70 percent. 7. There is trace mitral regurgitation. 8. Peak velocity across the aortic valve less than 2 m/sec. There is no aortic stenosis or regurgitation. 9. Hyperdynamic left ventricular systolic function noted. 10. Trace tricuspid regurgitation. Peak velocity across the tricuspid valve was 2.3 m/sec. Pulmonary artery systolic pressure of 31 mmHg. 11. There is no significant interventricular gradient. Hyperdynamic circulation was noted. Maximum gradient was 2.5 m/sec. 12. There is no pericardial effusion or obvious intracardiac mass or thrombus seen. cc: MD Nia Syed CRNP
--- NOTE | 2018-11-11 11:29 | CARDIOLOGY CONSULTATION ---
DATE: 11/11/2018 REQUESTING PHYSICIAN: Hospitalist Service REASON FOR CONSULTATION: Chest pain. HISTORY OF PRESENT ILLNESS: Mr. Duncan is a 68-year-old black gentleman who is undergoing chemotherapy under Dr. Padgett at the [facility]. He went to regular appointment with her yesterday, and he was sitting at the waiting area of the [facility] when all of a sudden he started developing left-sided chest discomfort, which he points to midway between the left anterior axillary line and the left midclavicular line. The pain was going up and down and moved up to the left side of the jaw. At that time, he notified the attendant. They let Dr. Padgett know that this was going on, and in turn, they requested immediate referral to the emergency room department. Over there, they have done the usual EKG that shows diffuse repolarization abnormality in the apical leads. They did a chest x-ray that shows bilateral infiltrates compatible with pneumonia. The patient states that the pain has subsided. It only lasted about 10 minutes at most. He admits to having some abdominal fullness and feeling constipated. He says that at times he gets a pleuritic discomfort in the left side of the chest, and that moves to the hypogastric area. This has been going on for a while. At any rate, this morning, on 11/11/2018, he is feeling back to his normal self, and they are going to arrange for a stress test this morning. PAST MEDICAL HISTORY: Positive for a diagnosis of lung cancer. He was found to have this condition last year, and he has been under the care of the Oncology Service. They turned him down as a poor surgical candidate in [place]. They felt that his surgical risk was prohibitive due to limited lung capacity. Diagnosis was made somewhere around 03/2018. He does have a history of hypertension. He has hyperlipidemia. He has had COPD, neuropathy, question of stroke in the past. PAST SURGICAL HISTORY: He had hemorrhoid surgery, right hand surgery, and LASIK eye surgery. SOCIAL HISTORY: He is . He is disabled. He has had 5 children. He quit smoking in 03/2018. The patient was diagnosed with coronary heart disease in 2014. At that time, Dr. Coppola performed a heart cath that showed 20% LAD stenosis and a distal 90% right coronary artery stenosis that was handled with administration of intracoronary nitroglycerin. The patient has had abnormal EKG for quite some time. His last stress test from 01/2017 showed a large size, moderate grade fixed defect in the inferior wall, inferoapical and inferoseptal, diagnostic of a scar, with very small linwood-infarct ischemia. Last echocardiogram was 03/2018 which showed normal left ventricular ejection fraction. Pulmonary pressure of 28 mmHg. HOME MEDICATIONS: At this time included amlodipine 10 mg daily, durvalumab (Imfinzi) IV as directed, gabapentin, hydralazine, hydrochlorothiazide, hydrocodone, lisinopril, Singulair, Zofran and prednisone. ALLERGIES: Negative. REVIEW OF SYSTEMS: Lately he has been limited by overall fatigue and shortness of breath. No angina pains until the onset of the pain that brought him to the hospital. No other positives in the multisystem review. PHYSICAL EXAMINATION: Today, blood pressure is 158/95, temperature 98 degrees, pulse 78, respirations 16. He is awake, alert and oriented, in no distress. HEENT is unremarkable. Chest: Diminished breath sounds bilaterally. Heart sounds are regular and rhythmic. No gallop or murmur is noted. Abdomen is soft, nontender. No masses. No hepatomegaly. Extremities showed decreased pulses. No edema. Neurologic: Follows commands. Moves all 4 extremities. DIAGNOSTIC DATA: Cholesterol is 187, LDL is 129, HDL is 69, triglycerides 74. BUN and creatinine normal. Hemoglobin is 12.1, white cell count is 4350. A CT of the chest was done today. There is evidence of coronary calcification and infiltration of the right lung. IMPRESSION: 1. The patient presented to the hospital for admission with really noncardiac chest pain. 2. History of coronary heart disease, stable. 3. Abnormal EKG with diffuse repolarization abnormality. 4. History of abnormal myocardial perfusion stress test in the past with inferior scar. 5. History of hypertension. 6. Lung cancer, inoperable, on the right side of the lung. 7. Former tobacco user. RECOMMENDATIONS: At this time, a 2D echocardiogram and a stress test have been requested. We will review the results. Further advice will be forthcoming. cc: Timmy Corona MD
[2018-11-11] MEDS ORDERED: LEXISCAN ONE (13:54)
--- NOTE | 2018-11-11 14:41 | PROGRESS NOTE ---
DATE: 11/11/2018 SUBJECTIVE: The patient has no major complaints. His breathing has improved somewhat. He is still complaining of chest pain. OBJECTIVE: Vital Signs: Blood pressure is 160/92, heart rate of 76, respiratory rate 16, temperature 98.4 degrees. Cardiovascular: Regular rate and rhythm. Pulmonary: Bilateral breath sounds. Clear to auscultation. GI: Soft, nontender, nondistended. Bowel sounds were positive. LABORATORY DATA: White count is 4, hemoglobin and hematocrit 12 and 37, platelets 168. Basic was normal. LDL was only 129. IMAGING STUDIES: Chest CT showed infiltrates consistent with possible radiation pneumonitis. PROBLEM LIST: 1. Chest pain, atypical. His cardiac workup is pending; so far it is negative. I am not really sure; this sounds more noncardiac, pulmonary, possibly related to his cancer and radiation. Waiting full workup, though. 2. Hypertension. Continue his regular medications and follow. 3. Chronic obstructive pulmonary disease. Appears to be stabilizing. 4. Radiation pneumonitis versus pneumonia. We will check a procalcitonin level, get a Pulmonary opinion if available and follow clinically. May benefit from some steroids now. According to the patient, he has been on steroids and that really has not helped him as far as his chest pain is concerned. DISPOSITION: I think if he is stable, workup is negative, anticipate discharge soon, which I would imagine would be the next 24 hours. He has no evidence of heart failure, pericarditis. cc: Bismark Carroll MD
[2018-11-11] MEDS: APRESOLINE PO SCH ×4 (15:56→16:22)
[2018-11-11] MEDS: NORVASC PO SCH ×2 (15:56→16:06)
[2018-11-11] MEDS: ASPIRIN EC PO SCH ×2 (15:56→16:06)
[2018-11-11] MEDS: SINGULAIR PO SCH ×2 (15:57→16:08)
[2018-11-11] MEDS: PRINIVIL PO SCH ×2 (15:57→16:08)
[2018-11-11] MEDS: LOVENOX SUBQ SCH (16:07)
[2018-11-11] MEDS: ROCEPHIN 1 GM in NS 50 ML IV SCH (16:07)
--- NOTE | 2018-11-11 16:33 | Diag Imaging Result Document ---
PROCEDURE NAME: MYOCARDIAL PERF SCAN, STR/REST - 11/11/2018 INDICATION: Chest pain. PROCEDURE PERFORMED: 1. Lexiscan stress. 2. One-day stress/rest myocardial perfusion imaging. PROCEDURE IN DETAIL: Mr. Duncan was brought to the nuclear laboratory and had a resting study with injection of 14.2 mCi of technetium-99m sestamibi with usual imaging protocol utilized. He subsequently was brought back and had a Lexiscan of Lexiscan stress and at peak stress was injected with 41.0 millicuries of technetium-99m sestamibi with usual imaging protocol utilized. FINDINGS: Lexiscan stress results: 1. Baseline EKG demonstrates what appears to be sinus rhythm. T-wave inversions noted somewhat diffusely. 2. Lexiscan stress did not demonstrate any clear evidence of ischemic related EKG changes or significant arrhythmias during the course of the study. Occasional PVCs were identified. Perfusion imaging results: 1. No evidence of abnormal extracardiac uptake. 2. TID ratio 0.80. 3. Perfusion imaging shows a moderate size mild intensity defect located in the inferior apical, mid inferior and basal inferior segments. This defect appears to improve somewhat from rest to stress imaging. Wall motion is intact in this area. This could be soft tissue attenuation as there is a significant loop of gut that interferes with interpretation in this area. Clinical correlation is recommended. There is no clear evidence of any ischemic changes. 4. Normal ejection fraction 81%. The end-diastolic volume is 102, end systolic volume is 20. Normal wall motion. cc: MD Nia aRi CRNP
[2018-11-12] MEDS: PROTONIX IV SCH ×2 (05:41→16:46)
[2018-11-12] MEDS: SODIUM CHLORIDE 0.9% INJ SCH (05:42)
[2018-11-12] MEDS: PRILOSEC PO SCH (06:21)
[2018-11-12] MEDS: DUONEB (A & A) INH SCH ×3 (07:30→15:53)
[2018-11-12] MEDS: APRESOLINE PO SCH ×3 (08:06→16:46)
[2018-11-12] MEDS: SINGULAIR PO SCH (08:06)
[2018-11-12] MEDS: ASPIRIN EC PO SCH (08:06)
[2018-11-12] MEDS: PRINIVIL PO SCH (08:06)
[2018-11-12] MEDS: ROCEPHIN 1 GM in NS 50 ML IV SCH (08:07)
[2018-11-12] MEDS: NORVASC PO SCH (08:07)
[2018-11-12] MEDS: LOVENOX SUBQ SCH (08:07)
[2018-11-12 08:08] LABS: BASO# 0.01 X1000 (0.0-0.2); BASO% 0.3 % (0.0-0.8); EOS# 0.06 X1000 (0.0-0.7); EOS% 1.7 % (0.0-10.0); HEMATOCRIT 39.6 % (42.0-52.0); LYMPH# 0.64 X1000 (1.2-3.4); LYMPH% 17.7 % (20.5-51.1); MCH 29.5 PG (27-31); MCHC 32.8 g/dL (33-37); MONO# 0.33 X1000 (0.11-0.59); MONO% 9.1 % (1.7-9.3); MPV 9.3 FL (7.4-10.4); NEUT# 2.58 X1000 (1.4-6.5); NEUT% 71.2 % (42.2-75.2); PLT 174 X1000 (130-400); RDW 14.4 % (11.5-14.5); WBC 3.62 X1000 (4.8-10.8)
[2018-11-12 08:26] LABS: AGAP 10; BUN 18 mg/dL (8-22); CALCIUM 8.8 mg/dL (8.8-10.2); CHLORIDE 106 mmol/L (98-107); COSMO 286; CREATININE 1.1 mg/dL (0.7-1.2); ESTIMATED GFR > 60; GLUCOSE 109 mg/dL (70-104); POTASSIUM 3.9 mmol/L (3.5-5.1); SODIUM 142 mmol/L (136-145); TCO2 26 mmol/L (25-35)
[2018-11-12 15:24] VITALS: BP 136/76
--- NOTE | 2018-11-13 14:33 | DISCHARGE SUMMARY ---
ADMISSION DATE: 11/10/2018 DISCHARGE DATE: 11/12/2018 DISCHARGE DIAGNOSES: 1. Radiation pneumonitis with associated #2 problem. 2. Chest pain. 3. Hypertension. 4. Chronic obstructive pulmonary disease. 5. Recent history of lung cancer which is felt to be, I think, was a non-small cell, but I do not have clear data on that although he was felt not to be a surgical candidate. He has completed radiation therapy and, I think, chemotherapy per Dr. Padgett. BRIEF HISTORY OF PRESENT ILLNESS HOSPITAL COURSED: Briefly, patient came in with chest pain atypical right-sided and left-sided. He was placed in observation. Cardiology consultation. Echo and stress test were performed. Echocardiogram showed a normal EF of 65% to 70% with no major valvular issues. There is no pericardial effusion, so felt like we ruled out cardiomyopathy related to chemotherapy. His Lexiscan did not show clear evidence of any ischemic changes. His chest x-ray showed some infiltrates compatible with pneumonia. Since he had recent radiation, I am not quite sure what the status of his cancer was. It progressed to a CT scan which we did not do a D-dimer, but in this setting that may not have been that helpful. In any case, he was felt that he had consolidation right perihilar, infrahilar area. He had a nodular focus that was not seen previously. Based on the data, Dr. Cole, or the imaging, he felt it was more consistent with radiation pneumonitis. The patient did not have a white count. He did not have a fever, and his procalcitonin was normal which is inconsistent with infection, at least bacterial infection. It was less than 0.1. That being said, I discussed the case with Dr. Vera who is his primary anglesmith. The patient was doing well, breathing comfortably. He really wanted to go home. He advised me to continue steroids which I think he had been on a course previously, and we did do antibiotics as well based on Dr. Vera's recommendation. DISCHARGE MEDICATIONS: Hydralazine 25 t.i.d. Hydrochlorothiazide 25 daily. Imfizi 120 as directed. Duo nebs. Lisinopril 40. Neurontin 300. Prednisone; we did a taper. Singulair 10 daily. Zofran p.r.n. Motrin p.r.n. Bowen p.r.n. Norvasc 10 daily. Omnicef 300 b.i.d. for 7 days and a prednisone taper slowly over a month. DISCHARGE CONDITION: Stable. FOLLOWUP: Follow up with his PCP and Dr. Vera in 1 to 2 weeks. TIME SPENT: Thirty-two minute discharge. cc: MD Bernie Long MD Alexis R. Penot, MD MTDD
== END 2018-11-12 18:26 | disposition home or self-care (01) | DRG 206 ==
LOC: ED 09:39 → 3N 15:04
PROVIDERS: ATTEND Internal Medicine
CPT/HCPCS: 71020; 71046; 71260; 78452; 80048; 80053; 80061; 82550; 83036; 83721; 83735; 83880; 84145; 84484; 85025; 85610; 85730; 87040; 93005; 93010; 93017; 93306; 94640; 94761; 96365; 99285; A9270; A9500; C9113; J0696; J1650; J2785; Q9967; S0164

== ENCOUNTER 2019-03-24 11:36 | Inpatient (IN) ==
--- NOTE | 2019-03-24 12:05 | Diag Imaging Result Doc PS360 ---
CT HEAD W/O CONTRAST - 03/24/2019 INDICATION: right sided weakness COMPARISON: 12/12/2018 FINDINGS: There is trace periventricular white matter chronic microvascular disease. This is stable from prior. The ventricles and sulci are normal in size and contour. No intracranial mass or hemorrhage. The skull is intact. The sinuses mastoids and middle ears are clear. IMPRESSION: No acute process. This exam was performed using automated exposure control, adjustment of mA or kV according to patient size, and/or use of iterative reconstruction technique Electronically signed by Jarrod Echevarria 03/24/2019 12:03 PM
[2019-03-24 12:31] LABS: BASO# 0.01 X1000 (0.0-0.2); BASO% 0.2 % (0.0-0.8); EOS# 0.12 X1000 (0.0-0.7); HEMATOCRIT 31.8 % (42.0-52.0); HEMOGLOBIN 10.4 g/dL (14.0-18.0); LYMPH# 0.75 X1000 (1.2-3.4); LYMPH% 12.4 % (20.5-51.1); MCH 29.8 PG (27-31); MCHC 32.7 g/dL (33-37); MCV 91.1 FL (81-99); MONO# 0.76 X1000 (0.11-0.59); MONO% 12.6 % (1.7-9.3); MPV 9.6 FL (7.4-10.4); NEUT% 72.8 % (42.2-75.2); PLT 209 X1000 (130-400); RBC 3.49 XMIL (4.7-6.1); RDW 14.3 % (11.5-14.5); WBC 6.04 X1000 (4.8-10.8)
[2019-03-24 12:32] LABS: INR 1.01; PROTIME 13.4 Seconds (11.0-16.0)
[2019-03-24 12:33] LABS: PTT 26.3 Seconds (22.3-41.8)
[2019-03-24 12:44] LABS: AGAP 12; ALB/GLOB RATIO 1.6; ALBUMIN 3.6 g/dL (3.5-5.0); ALKALINE PHOSPHATASE 69 U/L (32-122); BUN 36 mg/dL (8-22); CALCIUM 8.6 mg/dL (8.8-10.2); CHLORIDE 106 mmol/L (98-107); COSMO 298; CREATININE 1.1 mg/dL (0.7-1.2); ESTIMATED GFR > 60; GLUCOSE 114 mg/dL (70-104); GOT 11 U/L (10-34); GPT 12 U/L (10-44); SODIUM 145 mmol/L (136-145); TCO2 27 mmol/L (25-35); TOTAL BILIRUBIN 0.24 mg/dL (0.20-1.00); TOTAL PROTEIN 5.8 g/dL (6.3-8.3)
--- NOTE | 2019-03-24 12:46 | Diag Imaging Result Doc PS360 ---
CHEST-PORTABLE - 03/24/2019 INDICATION: stroke like symptoms COMPARISON: 01/31/2019 FINDINGS: Stable right perihilar density and scarring. Stable COPD. Heart size and pulmonary vascularity is normal. No new or focal infiltrates. No pneumothorax or pleural effusion. IMPRESSION: COPD with pulmonary scarring. No change from prior. Electronically signed by Jarrod Echevarria 03/24/2019 12:44 PM
[2019-03-24 13:30] LABS: URINE SOURCE CLEAN CATCH
[2019-03-24 13:36] LABS: COLOR YELLOW
[2019-03-24 13:37] LABS: BILIRUBIN URINE NEGATIVE (NEGATIVE); BLOOD URINE NEGATIVE (NEGATIVE); GLUCOSE URINE NEGATIVE (NEGATIVE); KETONE URINE NEGATIVE (NEGATIVE); LEUKOCYTES URINE SMALL (NEGATIVE); NITRITE URINE NEGATIVE (NEGATIVE); PROTEIN URINE TRACE mg/dL (NEGATIVE); SP GRAVITY URINE 1.018; TURBIDITY URINE CLEAR (CLEAR); UROBILINOGEN URINE NORMAL (NORMAL)
[2019-03-24 13:38] LABS: UR EPITHELIAL CELLS <10 /HPF (<10); URINE BACTERIA NEGATIVE /HPF; URINE RBC <10 /HPF (<10); URINE WBC 20-40 /HPF (<10)
[2019-03-24 13:57] LABS: URINE YEAST NONE SEEN
[2019-03-24 13:58] LABS: URINE CASTS NONE SEEN; URINE CRYSTALS NONE SEEN; URINE SMALL ROUND CELLS NONE SEEN
--- NOTE | 2019-03-24 13:58 | EKG Report ---
Test Performed on : 03/24/2019 1:37:47 PM Test Reason : Stroke like symptoms Blood Pressure : / mmHG Vent. Rate : 090 BPM Atrial Rate : 090 BPM P-R Int : 152 ms QRS Dur : 080 ms QT Int : 352 ms P-R-T Axes : 056 014 106 degrees QTc Int : 430 ms Sinus rhythm. with premature atrial complexes. with aberrant conduction. Possible Left atrial enlargement Septal infarct (cited on or before 07-JUN-2009) T wave abnormality, consider lateral ischemia Abnormal ECG When compared with ECG of 11-NOV-2018 07:36, aberrant conduction. is now present T wave inversion no longer evident in Inferior leads T wave inversion no longer evident in Anterior leads Unconfirmed Result
[2019-03-24 14:06] LABS: UR AMPHETAMINES QUAL NONE DETECTED (NONE DETECT); UR BARBITUATES QUAL NONE DETECTED (NONE DETECT); UR BENZODIAZEPIN QUAL NONE DETECTED (NONE DETECT); UR CANNABINOIDS QUAL PRESUMPTIVE POSITIVE (NONE DETECT); UR COCAINE QUAL NONE DETECTED (NONE DETECT); UR METHADONE QUAL NONE DETECTED (NONE DETECT); UR OPIATES QUAL NONE DETECTED (NONE DETECT); UR OXYCODONE QUAL NONE DETECTED (NONE DETECT); UR PCP QUAL NONE DETECTED (NONE DETECT)
[2019-03-24] MEDS ORDERED: ASPIRIN PO ONE (14:36)
--- NOTE | 2019-03-24 15:29 | PROVIDER DOCUMENTATION ---
This chart was entered by Nini Clay Scribe, acting as scribe for Justen Salmeron MD. HPI-Neurological Disorder - General Chief Complaint: STROKE ALERT Stated Complaint: RT SIDE WEAKNESS Time Seen by Provider: 03/24/19 12:12 Source: patient Allergies/Adverse Reactions: Patient Allergies Allergy/AdvReac Type Severity Reaction Status Date / Time No Known Allergies Allergy Verified 03/24/19 12:19 Home Medications: Home Medication List Medication Instructions Recorded Confirmed Last Taken Type Amlodipine [Norvasc] 10 mg PO DAILY #30 tablet 07/27/16 12/12/18 10/17/17 08:00 Rx Ipratropium/Albuterol Sulfate 3 ml IH PRN PRN 03/17/17 11/10/18 03/23/17 History [Iprat-Albut 0.5-3(2.5) mg/3 ml] Montelukast Sodium [Singulair] 10 mg PO DAILY 03/17/17 11/10/18 10/17/17 08:00 History Hydrocodone/APAP 7.5 mg/325 mg 1 ea PO Q6H PRN PRN #15 tab 10/17/17 11/10/18 Unknown Rx [[place]-7.5] Ibuprofen [Motrin] 600 mg PO Q6HR #30 tab 09/13/18 11/10/18 Unknown Rx Durvalumab [Imfinzi] 1 dose IV DIRECTED 11/10/18 11/10/18 Unknown History Gabapentin [Neurontin] 1 tab PO DIRECTED 11/10/18 12/12/18 Unknown History Hydralazine [Apresoline] 1 tab PO TID 11/10/18 12/12/18 Unknown History Hydrochlorothiazide 1 tab PO DAILY 11/10/18 12/12/18 Unknown History Lisinopril 1 tab PO DAILY 11/10/18 12/12/18 Unknown History Ondansetron [Zofran] 1 tab PO Q8H PRN 11/10/18 11/10/18 Unknown History Prednisone 10 mg PO DAILY #70 tab 11/12/18 Unknown Rx Cilostazol 1 tab PO BID 12/12/18 12/12/18 Unknown History Cyclobenzaprine [Flexeril] 10 mg PO TID #20 tab 12/12/18 Unknown Rx - History of Present Illness-Neuro Nature of Presenting Problem: Patient is a 68 year old male who presents to the ED via EMS with left side weakness and numbness. Patient states symptoms have been present for 2 days but worsened this morning. Denies headache. States having dizziness. Denies history of CVA. Severity: reports: mild Onset/Duration: reports: 2 days ago Timing: reports: still present, getting worse (this am) Context: reports: other (weakness and numbness) Character of Deficits: reports: new weakness, altered sensation (numbness) New weakness or altered sensation location:: reports: LUE, LLE Associated Symptoms: reports: dizziness Similar Symptoms Previously?: Yes Recently seen or treated by another doctor?: No Review of Systems - Adult - REVIEW OF SYSTEMS - ADULT Constitutional: reports: no symptoms reported. denies: chills, fever, fatique Eyes: reports: no symptoms reported Ears, Nose, Mouth & Throat: reports: no symptoms reported Cardiovascular: reports: no symptoms reported Respiratory: reports: no symptoms reported Gastrointestinal: reports: no symptoms reported Genitourinary: reports: no symptoms reported Musculoskeletal: reports: no symptoms reported Integumentary: reports: no symptoms reported Neurological: reports: see HPI, dizziness/vertigo (dizziness), numbness (LUE and LLE), other (weakness to LUE and LLE). denies: headache/migraines Psychiatric: reports: no symptoms reported Endocrine: reports: no symptoms reported Hematologic/Lymphatic: reports: no symptoms reported Allergic/Immunologic: reports: no symptoms reported All Other Systems: Reviewed and Negative Past History - Adult - PAST MEDICAL HISTORY-ADULT Review of Records: reports: Old Records Reviewed, Social history reviewed & non- contributory. 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 negative: lethargic Eye Exam: bilateral eye: normal inspection, PERRL, EOMI HENMT: normocephalic/atraumatic, moist mucous membranes. negative: angioedema Head Injury: no evidence of injury. negative: active bleeding, lacerations Respiratory: chest non-tender, lungs clear, normal breath sounds. negative: crackles, rhonchi Cardiovascular: normal peripheral pulses, regular rate, rhythm. negative: tachycardia Abdominal Exam: normal bowel sounds, non tender, soft. negative: guarding, rebound Extremity: normal inspection. 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 negative: facial droop Motor/Sensory: sensory deficit (LUE), weak motor strength LUE, weak motor strength LLE Neurologic: motor weakness (LUE and LLE), sensory deficit (LUE). negative: aphasia, facial droop Integumentary: normal color, normal turgor, warm/dry. negative: diaphoresis, ecchymosis, jaundice Psych/Mental Status: normal mood/affect, oriented x 3. negative: anxious Progress - PLAN OF CARE/RESULTS Progress/Plan/Lab Results: Vital Signs - 8 hr 03/24/19 12:18 Temperature 98.2 F Pulse Rate 103 H Respiratory Rate 19 Blood Pressure 123/70 O2 Sat by Pulse Oximetry 100 Laboratory Results - last 24 hr 03/24/19 03/24/19 03/24/19 12:14 12:14 12:14 WBC 6.04 RBC 3.49 L Hgb 10.4 L Hct 31.8 L MCV 91.1 MCH 29.8 MCHC 32.7 L RDW Std Deviation 14.3 Plt Count 209 MPV 9.6 Immature Gran % (Auto) 0.0 Neut % (Auto) 72.8 Lymph % (Auto) 12.4 L Adams % (Auto) 12.6 H Eos % (Auto) 2.0 Baso % (Auto) 0.2 Immature Gran # (Auto) 0.00 Neut # (Auto) 4.40 Lymph # (Auto) 0.75 L Adams # (Auto) 0.76 H Eos # (Auto) 0.12 Baso # (Auto) 0.01 PT 13.4 INR 1.01 PTT (Actin FS) 26.3 Sodium 145 Potassium 4.0 Chloride 106 Carbon Dioxide 27 Anion Gap 12 BUN 36 H Creatinine 1.1 Estimated GFR/1.73 m2 > 60 BUN/Creatinine Ratio 33 Glucose 114 H Calculated Osmolality 298 Calcium 8.6 L Total Bilirubin 0.24 AST 11 ALT 12 Alkaline Phosphatase 69 Troponin T Total Protein 5.8 L Albumin 3.6 Globulin 2.2 Albumin/Globulin Ratio 1.6 Urine Source Urine Color Urine Turbidity Urine pH Ur Specific [place] Urine Protein Ur Glucose (Stick) Ur Ketones (Stick) Urine Blood Urine Nitrite Urine Bilirubin Urobilinogen Dipstick Urine Leukocytes Urine WBC (Auto) Urine RBC (Auto) U Epithel Cells (Auto) Urine Bacteria (Auto) Urine Crystals Small Round Cells Urine Casts Urine Yeast-like Cells Urine Opiates Screen Ur Oxycodone Screen Ur Methadone, Qual Ur Barbiturates Screen Ur Phencyclidine Scrn Ur Amphetamines Screen U Benzodiazepines Scrn Urine Cocaine Screen U Cannabinoids Screen 03/24/19 03/24/19 03/24/19 12:14 13:24 13:24 WBC RBC Hgb Hct MCV MCH MCHC RDW Std Deviation Plt Count MPV Immature Gran % (Auto) Neut % (Auto) Lymph % (Auto) Adams % (Auto) Eos % (Auto) Baso % (Auto) Immature Gran # (Auto) Neut # (Auto) Lymph # (Auto) Adams # (Auto) Eos # (Auto) Baso # (Auto) PT INR PTT (Actin FS) Sodium Potassium Chloride Carbon Dioxide Anion Gap BUN Creatinine Estimated GFR/1.73 m2 BUN/Creatinine Ratio Glucose Calculated Osmolality Calcium Total Bilirubin AST ALT Alkaline Phosphatase Troponin T < 0.010 Total Protein Albumin Globulin Albumin/Globulin Ratio Urine Source CLEAN CATCH Urine Color YELLOW Urine Turbidity CLEAR Urine pH 7.0 Ur Specific [place] 1.018 Urine Protein TRACE A Ur Glucose (Stick) NEGATIVE Ur Ketones (Stick) NEGATIVE Urine Blood NEGATIVE Urine Nitrite NEGATIVE Urine Bilirubin NEGATIVE Urobilinogen Dipstick NORMAL Urine Leukocytes SMALL A Urine WBC (Auto) 20-40 A Urine RBC (Auto) <10 U Epithel Cells (Auto) <10 Urine Bacteria (Auto) NEGATIVE Urine Crystals NONE SEEN Small Round Cells NONE SEEN Urine Casts NONE SEEN Urine Yeast-like Cells NONE SEEN Urine Opiates Screen NONE DETECTED Ur Oxycodone Screen NONE DETECTED Ur Methadone, Qual NONE DETECTED Ur Barbiturates Screen NONE DETECTED Ur Phencyclidine Scrn NONE DETECTED Ur Amphetamines Screen NONE DETECTED U Benzodiazepines Scrn NONE DETECTED Urine Cocaine Screen NONE DETECTED U Cannabinoids Screen PRESUMPTIVE POSITIVE A Orders Category Date Time Status Cardiac Monitoring DIRECTED Care 03/24/19 12:12 Active Finger Stick Blood Sugar (ED) DIRECTED Care 03/24/19 12:12 Active Oxygen Therapy- ED Nursing DIRECTED Care 03/24/19 12:12 Active Saline Loc NOW Care 03/24/19 12:12 Active CHEST-PORTABLE [RAD] Stat Exams 03/24/19 12:[address] HEAD W/O CONTRAST [CT] Stat Exams 03/24/19 11:36 Completed CBC WITH ELECTRONIC DIFF [HEME] Stat Lab 03/24/19 12:14 Completed COMPREHENSIVE METABOLIC PANEL [CHEM] Stat Lab 03/24/19 12:14 Completed PROTIME WITH INR [COAG] Stat Lab 03/24/19 12:14 Completed PTT [COAG] Stat Lab 03/24/19 12:14 Completed TROPONIN T Stat Lab 03/24/19 12:14 Completed URINALYSIS W/POSS RFLX CULT [URINALYSIS] Stat Lab 03/24/19 13:24 Completed URINE CULTURE [RM] Routine Lab 03/24/19 14:00 Received URINE DRUG SCREEN Stat Lab 03/24/19 13:24 Completed URINE MANUAL MICROSCOPIC [URINALYSIS] Stat Lab 03/24/19 13:24 Completed Aspirin Med 03/24/19 14:36 Discontinued 325 mg PO NOW ONE EKG [EKG] Stat Ther 03/24/19 12:12 Draft Result Diagrams: 03/24/19 12:14 03/24/19 12:14 - EKG 1 Time of EKG reading by physician:: 13:37 EKG Read and Signed by:: Justen Salmeron EKG Interpretation (*Must complete 3 of following elements*): Abnormal (T wave abnormality, consider lateral ischemia) Rate: 90 Rhythm: sinus rhythm with premature atrial complexes with aberrant conduction [place]: normal MD Interval: normal Comments: possible left atrial enlargement; septal infarct, age undetermined; - XRAY 1 XRAY Study: Chest Impression: See EMR Report ( CHEST-PORTABLE - 03/24/2019 INDICATION: stroke like symptoms COMPARISON: 01/31/2019 FINDINGS: Stable right perihilar density and scarring. Stable COPD. Heart size and pulmonary vascularity is normal. No new or focal infiltrates. No pneumothorax or pleural effusion. IMPRESSION: COPD with pulmonary scarring. No change from prior. Electronically signed by Jarrod Echevarria 03/24/2019 12:44 PM 03/24/19 1244 Interpreting Physician: Jarrod Echevarria MD Dictated Date/Time: 03/24/19 1237 cc: Justen Salmeron MD; Claus Cespedes MD) - CT/MRI 1 CT Study: Head Impression: See EMR Report ( CT HEAD W/O CONTRAST - 03/24/2019 INDICATION: right sided weakness COMPARISON: 12/12/2018 FINDINGS: There is trace periventricular white matter chronic microvascular disease. This is stable from prior. The ventricles and sulci are normal in size and contour. No intracranial mass or hemorrhage. The skull is intact. The sinuses mastoids and middle ears are clear. IMPRESSION: No acute process. This exam was performed using automated exposure control, adjustment of mA or kV according to patient size, and/or use of iterative reconstruction technique Electronically signed by Jarrod Echevarria 03/24/2019 12:03 PM 03/24/19 1203 Interpreting Physician: Jarrod Echevarria MD Dictated Date/Time: 03/24/19 1202 cc: Justen Salmeron MD; Claus Cespedes MD) - CONSULTS/PCP/HOSPITALIST Notification #1 *Consult/PCP/Hospitalist*: Andree ICT BUSINESS ANALYST for Hospitalist Time Discussed: 15:28 Consult Disposition: Will see in ED, Admit Departure - Departure Date of Disposition Decision: 03/24/19 Time of Disposition Decision: 15:27 DIAGNOSIS: UTI (urinary tract infection), Anemia, CVA (cerebral vascular accident) Disposition: ADMITTED INPATIENT 09 Certified Medical Emergency: Emergent Condition: Fair Referrals and Follow-Ups: Claus Cespedes MD [Primary Care Provider] - - Critical Care Note This patient required my direct & personal management of CC.: No Attestation - Physician/ AKILA Attestation Patient care was provided by Advanced Practice Provider:: No The physician spent face to face time with patient:: Yes Advanced Practice Provider documentation review:: Supervising physician onsite and consulted in the evaluation and care of this patient. The physician did have a face to face encounter with the patient. This chart was documented by the indicated scribe, (Nini Clay, Halima) and accurately reflects the services I performed and decisions made by Lucía kohler Donald C., MD, as attested by the provider's signature.
[2019-03-24] MEDS ORDERED: D5 1/2 NS + KCL 20 MEQ 1,000 ML IV SCH (17:30)
[2019-03-24] MEDS ORDERED: LOVENOX SUBQ SCH (17:30)
[2019-03-24] MEDS: PLETAL PO SCH (21:00)
[2019-03-24] MEDS ORDERED: PLETAL PO SCH (21:00)
[2019-03-24] MEDS ORDERED: NEURONTIN PO SCH (21:00)
[2019-03-24] MEDS: ULTRAM PO SCH (21:42)
[2019-03-24] MEDS: NEURONTIN PO SCH (21:43)
[2019-03-24] MEDS: FLOMAX PO SCH (21:43)
--- NOTE | 2019-03-24 22:55 | HISTORY AND PHYSICAL ---
PRESENTING COMPLAINT: Numbness of both upper extremities, worse on the right side for the past 1 week. HISTORY OF PRESENTING COMPLAINT: Mr. Duncan is a 68-year-old gentleman who is known to have right parahilar lung cancer, appears to be a [id number] lung cancer. He follows up with Dr. Padgett. The patient is status post radiation therapy and chemotherapy. He said he is supposed to have a biopsy done this coming Wednesday, to be arranged by Dr. Padgett. Mr. Duncan is also known to have COPD, hypertension and BPH. He comes in this time because of neck pain which has been going on for some time, associated with numbness of both upper extremities, more so on the right side than the left. He also narrates having some weakness of the lower extremities. Occasionally he feels like it both legs are kind of falling off from below him. Upon presenting to the emergency room today, the patient was evaluated including a CT scan of the head which did not show any acute process. His presenting vitals were fairly stable, with a blood pressure 123/70, pulse of 103, respirations 19, temperature is 98.2 degrees. We have been consulted for possible stroke. PAST MEDICAL HISTORY: 1. COPD. 2. Hypertension. 3. About a year diagnosed right lung cancer. The patient has had chemotherapy and radiation. 4. Recently diagnosed DVT of the right lower extremity. The patient is on Xarelto anticoagulation. HOME MEDICATIONS: 1. Amlodipine 10 mg p.o. daily. 2. Gabapentin 300 b.i.d. 3. Hydrochlorothiazide 25 mg p.o. daily. 4. Lisinopril 40 mg p.o. daily. 5. Cilostazol 100 mg b.i.d. 6. Rivaroxaban 20 mg p.o. daily. 7. Tamsulosin 0.4 p.o. at bedtime. 8. Tramadol 50 mg p.o. daily. PAST SURGICAL HISTORY: 1. Right lung biopsy. 2. Bilateral eye laser surgery. 3. Transurethral resection of the prostate. FAMILY HISTORY: Fairly unremarkable. SOCIAL HISTORY: The patient quit smoking in 03/2018 when he was diagnosed with the lung cancer. Before then he had a more than [id number] history. He denies illicit drug or alcohol use. ALLERGIES: Unknown. REVIEW OF SYSTEMS: A 14-point review of systems was conducted with Mr. Duncan. Unremarkable except for what we have in the HPI. Specifically, Mr. Duncan denies any urinary incontinence. Denies any rectal or fecal incontinence. He is able to feel when he wants to use the restroom. PHYSICAL EXAMINATION: VITAL SIGNS: Blood pressure is 123/70, pulse of 103, respirations 19, temperature 98.2 degrees. The patient is saturating 100% on room air. GENERAL: Mr. Duncan is a 68-year-old gentleman he is in bed. He does not seem to be in any cardiopulmonary distress. HEENT: Mucosa is pink and moist. Anicteric. Acyanotic. Head is normocephalic and atraumatic. NECK: Supple. There is no JVD and no carotid bruit. RESPIRATORY: There is good air entry bilateral. There are some distant rhonchi and wheezing in both lung hastings. No crepitations. There is no accessory muscle use. CARDIOVASCULAR: Regular rate and rhythm. No murmurs, no rubs, no gallops. [place] beat is at 5th intercostal space, midclavicular line. GASTROINTESTINAL: Abdomen is soft, nontender. Bowel sounds present. There is no hepatosplenomegaly. EXTREMITIES: No pedal edema. Distal pulses are present. CENTRAL NERVOUS SYSTEM: The patient is awake, alert and oriented x4. The patient has about 4+ power on the right side, both upper and lower extremities. The left side seems to be 5/5. Sensation for the most part is intact. There are mildly exaggerated reflexes on both sides bilaterally in almost all the joints. The patient has Babinski positive on the right lower extremity. LABORATORY DATA: WBC 6.04, hemoglobin is 10.4, platelet count of 209,000. Chemistry is also reviewed, which is fairly unremarkable except BUN which is slightly elevated at 36. DIAGNOSTIC DATA: The patient's CT scan was unremarkable. A chest x-ray was also unremarkable. CT scan of the head and spine which was done on 12/12/2018 did show severe degenerative changes throughout the cervical spine. There was good alignment to the cervical spine. There was no paracervical soft tissue swelling. No subluxation. No fracture. Prominent atherosclerosis was noted. An MRI of the neck which was done on 06/16/2018 also shows multilevel degenerative disk disease. There was some associated narrowing of the spinal canal, primarily at C3-C4 and C4-C5. There was also multilevel degenerative neural foraminal narrowing. ASSESSMENT AND PLAN: 1. Neck pain with numbness in both upper extremities, which is consistent with some mild cervical radiculopathy. The patient does have an MRI which does suggest that he has multilevel degenerative disk disease in the cervical spine with some narrowing. It is very possible that this could be getting worse. We are going to admit Mr. Duncan, control the pain and do another MRI of the neck on Wednesday. Obviously, if his symptoms start to get any worse we will transfer him out as needed. 2. Chronic obstructive pulmonary disease, currently not in exacerbation. We will use p.r.n. inhalers. 3. Mild clinical volume depletion. We will start the patient on baseline intravenous fluids. 4. Right parahilar lung cancer. I do not see any pathology report in our chart. It is presumed that he has a [id number] lung cancer, and he is being followed up by Dr. Padgett. I understand he has an appointment for a biopsy on Wednesday. We will notify Dr. Padgett on Wednesday that Mr. Duncan is here in the hospital. 5. Recently diagnosed right lower extremity deep vein thrombosis. We will continue with the patient's Xarelto. 6. Severe peripheral vascular disease noted on imaging. We will give further recommendations as we get further clinical and imaging data. cc: Ismael Calvert MD
[2019-03-25 07:06] LABS: BASO# 0.01 X1000 (0.0-0.2); BASO% 0.2 % (0.0-0.8); EOS# 0.14 X1000 (0.0-0.7); EOS% 2.8 % (0.0-10.0); HEMATOCRIT 31.3 % (42.0-52.0); HEMOGLOBIN 10.2 g/dL (14.0-18.0); LYMPH# 0.71 X1000 (1.2-3.4); LYMPH% 14.3 % (20.5-51.1); MCH 29.9 PG (27-31); MCHC 32.6 g/dL (33-37); MCV 91.8 FL (81-99); MONO# 0.68 X1000 (0.11-0.59); MONO% 13.7 % (1.7-9.3); MPV 9.5 FL (7.4-10.4); NEUT# 3.41 X1000 (1.4-6.5); PLT 184 X1000 (130-400); RBC 3.41 XMIL (4.7-6.1); WBC 4.95 X1000 (4.8-10.8)
[2019-03-25 07:14] LABS: INR 1.04; PROTIME 13.7 Seconds (11.0-16.0)
[2019-03-25] MEDS ORDERED: NON-FORMULARY MED (Fluticasone/Umeclidin/Vilanter [Trelegy Ellipta 100-62.5-25] 1 EA) INH SCH (07:30)
[2019-03-25 07:35] LABS: AGAP 11; ALB/GLOB RATIO 1.2; ALBUMIN 3.4 g/dL (3.5-5.0); ALKALINE PHOSPHATASE 61 U/L (32-122); BUN 19 mg/dL (8-22); CALCIUM 8.4 mg/dL (8.8-10.2); CHLORIDE 107 mmol/L (98-107); COSMO 290; ESTIMATED GFR > 60; GLUCOSE 115 mg/dL (70-104); GOT 11 U/L (10-34); GPT 11 U/L (10-44); MAGNESIUM 2.2 mg/dL (1.5-2.7); POTASSIUM 4.2 mmol/L (3.5-5.1); SODIUM 144 mmol/L (136-145); TCO2 26 mmol/L (25-35); TOTAL BILIRUBIN 0.27 mg/dL (0.20-1.00); TOTAL PROTEIN 6.2 g/dL (6.3-8.3)
[2019-03-25] MEDS: NEURONTIN PO SCH ×2 (08:20→20:12)
[2019-03-25] MEDS: NORVASC PO SCH (08:20)
[2019-03-25] MEDS: ROBAXIN PO SCH ×2 (08:21→20:12)
[2019-03-25] MEDS ORDERED: DUONEB (A & A) INH PRN (08:27)
[2019-03-25] MEDS: ULTRAM PO SCH ×2 (08:45→20:12)
[2019-03-25] MEDS: PLETAL PO SCH ×2 (09:57→20:12)
[2019-03-25] MEDS: XARELTO PO SCH (09:58)
[2019-03-25] MEDS: DUONEB (A & A) INH SCH ×4 (10:59→23:01)
[2019-03-25] MEDS: NON-FORMULARY BULK MED INH SCH (12:10)
--- NOTE | 2019-03-25 16:32 | PROGRESS NOTE ---
DATE: 03/25/2019 SUBJECTIVE: This morning, Mr. Duncan refers to be doing a little better but still complaining of some numbness, more so on the right side than the left. He still has some pains to his neck and some cramps, numbness. OBJECTIVE: Vital signs: Blood pressure is 116/69, pulse of 60, temperature is 98.7, the patient is saturating 99% on room air. General: Mr. Duncan is a 68-year-old gentleman. He was sitting up in a chair, having breakfast. He was not in any distress. HEENT: Mucosa is pink and moist. Anicteric. Acyanotic. Neck: Supple. Chest: Air entry was bilaterally reduced. There were still some crackles in posterior lung hastings and some expiratory wheezing. Cardiovascular: Regular rate and rhythm. No murmurs, no rubs, no gallops. SERVICE CENTER ASSISTANT: The patient is awake, alert, oriented x4. Minimum power difference, less on the right side. Sensation seems to be for the most part intact. The patient has exaggerated reflexes. Babinski is still positive on the right lower extremity. LABORATORY DATA: Reviewed. Hemoglobin is 10.2. The rest of CBC is tracy. Chemistry is completely within normal range. So far, urine culture is negative. CURRENT MEDICATIONS: Have all been reviewed. ASSESSMENT: 1. 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 We are pending an MRI tomorrow. The patient is on pain medications, and Physical Therapy has been consulted. 2. History of chronic obstructive pulmonary disease, in mild bronchospasm. The patient continues on p.r.n. inhalers, and we will use also nebulizations. 3. Mild clinical volume depletion, improved. Fluids will be discontinued. 4. Right parahilar lung cancer. The patient follows up with Dr. Padgett. He has had radiation and chemotherapy. 5. Recently diagnosed right lower extremity deep vein thrombosis. The patient is on Xarelto. 6. Severe peripheral vascular disease, noted. 7. Normocytic anemia. We will check iron studies. PLAN: In general it looks like Mr. Duncan is doing a little better. We are going to continue with his gabapentin. I have added Robaxin to his current treatment and will continue with his home medications. We are pending MRI of the neck on Wednesday. cc: Ismael Calvert MD MTDSherry
[2019-03-25] MEDS: FLOMAX PO SCH (20:12)
[2019-03-26] MEDS: DUONEB (A & A) INH SCH ×6 (04:36→23:24)
[2019-03-26] MEDS: NON-FORMULARY BULK MED INH SCH (08:01)
[2019-03-26] MEDS: NORVASC PO SCH (08:08)
[2019-03-26] MEDS: ROBAXIN PO SCH ×2 (08:08→20:48)
[2019-03-26] MEDS: NEURONTIN PO SCH ×2 (08:08→20:48)
[2019-03-26] MEDS: XARELTO PO SCH (08:08)
[2019-03-26] MEDS: ULTRAM PO SCH ×2 (08:08→20:48)
[2019-03-26] MEDS: PLETAL PO SCH ×2 (08:09→20:48)
--- NOTE | 2019-03-26 15:19 | PROGRESS NOTE ---
DATE: 03/26/2019 SUBJECTIVE: Today, Mr. Duncan refers to be doing fairly okay. He still remains with some numbness on both upper extremities, worse on the right. The patient continues to have pain in the neck. OBJECTIVE: Vital signs: Blood pressure is 140/83, pulse of 100, respirations 16, temperature 97.9 degrees. General: Mr. Duncan is a 68-year-old gentleman. He is in bed, no distress. HEENT: Mucosa is pink and moist. Anicteric. Acyanotic. Neck: Supple. Chest: Good air entry bilateral. There are no crepitations, but there is some diffuse wheezing in expiration in the posterior lung hastings, more to the right than the left. Cardiovascular: Regular rate and rhythm. No murmurs. STOVE REFINISHER: Patient is awake, alert, and oriented. There is some mild power difference in the upper extremities, the right is slightly weaker than the left. Sensation is intact. He has mildly exaggerated reflexes in both lower extremities with positive Babinski on the right. Musculoskeletal: There is mild tenderness on palpation of the cervical spine. ASSESSMENT: 1. 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 The patient seems to know that he had some issues with his neck before because today he told me he has even been evaluated by Dr. Rey who is a neurosurgeon in [place] and that he does not want to be re- evaluated again by him. We are going to do the MRI tomorrow and depending on the findings, we might try to get him to be seen at an inpatient or outpatient consultation. 2. History of chronic obstructive pulmonary disease, in mild bronchospasm. The patient will continue with nebulizations. 3. Right perihilar lung cancer. Patient follows up with Dr. Padgett. He has had radiation and chemotherapy in the past. He did tell me today that he is pending a biopsy tomorrow. That was supposed to have been arranged as outpatient by Dr. Padgett, so we will notify Dr. Padgett about the patient being here in the hospital. 4. Recently diagnosed lower extremity DVT. The patient is on Xarelto. 5. Severe peripheral vascular disease, noted. We will continue with aspirin and statin. 6. Normocytic anemia. cc: Ismael Calvert MD
[2019-03-26] MEDS ORDERED: NORCO-10 PO ONE (15:44)
[2019-03-26] MEDS: FLOMAX PO SCH (20:48)
[2019-03-27] MEDS: DUONEB (A & A) INH SCH ×3 (03:40→11:08)
[2019-03-27 06:44] LABS: IRON SATURATION 7 %; TIBC 223 ug/dL; TOTAL IRON 15 ug/dL (53-167); UNBOUND IRON 208 ug/dL (112-346)
[2019-03-27 06:59] LABS: FERRITIN 133 ng/mL (30-400)
[2019-03-27] MEDS ORDERED: VENOFER 200 MG in NS 100 ML IV ONE (08:20)
[2019-03-27] MEDS ORDERED: FOLIC ACID PO SCH (09:00)
--- NOTE | 2019-03-27 09:35 | EKG Report ---
Test Performed on : 03/27/2019 09:16:29 AM Test Reason : ST with frequent PACs Blood Pressure : / mmHG Vent. Rate : 118 BPM Atrial Rate : 118 BPM P-R Int : 148 ms QRS Dur : 082 ms QT Int : 284 ms P-R-T Axes : 062 019 120 degrees QTc Int : 398 ms Sinus tachycardia. with premature atrial complexes. with aberrant conduction. Left atrial enlargement Possible Septal infarct (cited on or before 07-JUN-2009) T wave abnormality, consider lateral ischemia Abnormal ECG When compared with ECG of 24-MAR-2019 13:37, (Unconfirmed) No significant change was found Confirmed by Lois ROSENBAUM, Gurinder Arteaga ([id number]) on 03/28/2019 8:37:14 AM
[2019-03-27] MEDS: NORVASC PO SCH (10:00)
[2019-03-27] MEDS: ULTRAM PO SCH (10:00)
[2019-03-27] MEDS: PLETAL PO SCH (10:00)
[2019-03-27] MEDS: XARELTO PO SCH (10:00)
[2019-03-27] MEDS: ROBAXIN PO SCH (10:01)
[2019-03-27] MEDS: NEURONTIN PO SCH (10:01)
--- NOTE | 2019-03-27 11:22 | Diag Imaging Result Doc PS360 ---
EXAM: MRI CERVICAL SPINE W/CONTRAST INDICATION: cervical radiculopathy TECHNIQUE: COMPARISON: 06/16/2018 FINDINGS: There are endplate degenerative marrow signal changes throughout the cervical spine. The osseous marrow signal is essentially unremarkable, otherwise. There is a possible tiny syrinx at the C6 level. This can be seen on image 57 of series 7. It appears to have been present on the previous study as well but motion artifact previously made it less distinct. The structures at the base of the brain and surrounding soft tissues are essentially unremarkable. C1-2: There are degenerative changes seen on sagittal images at this level. There is no evidence of significant central canal stenosis. C2-3: There is a small broad-based disc osteophyte complex causing mild effacement of the ventral thecal sac but no cord compression. There is mild right neuroforaminal narrowing. This level is stable. C3-4: There is a broad-based disc osteophyte complex causing [id number] central stenosis. There is near contact with the spinal cord and mild flattening of the cord indicating some contact when in a standing position. There is moderate left neuroforaminal stenosis and mild right neuroforaminal stenosis. This level is stable. C4-5: There is a broad-based disc osteophyte complex causing moderate central stenosis with near contact with the spinal cord and mild cord flattening indicating some contact when in a standing position. There is mild bilateral foraminal stenosis. This level is stable. C5-6: There is a broad-based disc osteophyte complex causing mild ventral thecal sac effacement. There is no cord compression. There is mild left neuroforaminal stenosis. This level is stable. C6-7: There is a broad-based disc osteophyte complex causing very mild ventral thecal sac effacement but no cord compression. There is mild to moderate left neuroforaminal stenosis. This level is stable. C7-T1: There is a broad-based disc osteophyte complex causing very minimal ventral thecal sac effacement and no cord compression. Uncovertebral osteophytes are causing mild bilateral foraminal stenosis, more prominent on the right. This level is stable. IMPRESSION: 1.Multilevel degenerative disc disease throughout the cervical spine that appears to be approximately stable as compared to the previous study. 2.Possible tiny syrinx at the C5 level. If so, it appears stable. Electronically signed by Leroy Cole 03/27/2019 11:20 AM
[2019-03-27 11:39] VITALS: BP 129/80
[2019-03-27] MEDS ORDERED: CITRATE OF MAGNESIA PO ONE (12:48)
[2019-03-27] MEDS ORDERED: LOPRESSOR PO ONE (12:51)
[2019-03-27] MEDS ORDERED: FERROUS SULFATE PO SCH (17:00)
[2019-03-27] MEDS ORDERED: LOPRESSOR PO SCH (21:00)
--- NOTE | 2019-03-28 12:42 | DISCHARGE SUMMARY ---
ADMISSION DATE: 03/24/2019 DISCHARGE DATE: 03/27/2019 DISPOSITION: Home. FOLLOW-UP: 1. Dr. Cespedes. 2. Dr. Rosario (neurosurgeon in [place]) Patient is also advised to follow up with Cardiology. CONSULTATION DURING ADMISSION: None. IMAGING STUDIES OF SIGNIFICANCE: 1. A CT scan of the head showed no acute process. A chest x-ray also shows COPD with pulmonary scarring. No change from prior. 2. The cervical spine did show multilevel degenerative disk disease throughout the cervical spine that appears to be approximately stable. Possible tiny syrinx at C5 level. If so, it appears stable. ADMISSION DIAGNOSES: 1. Neck pain with numbness in both upper extremities. 2. Chronic obstructive pulmonary disease. 3. Mild clinical volume depletion. 4. Right perihilar lung cancer. Recently diagnosed DVT. 1. Severe peripheral vascular disease. DIAGNOSES AT TIME OF DISCHARGE: 1. Neck pain secondary to severe cervical discopathy with mild radicular myelopathy. 2. History of chronic obstructive pulmonary disease and mild bronchospasm resolved. 3. Right perihilar lung cancer. Patient follows up with Dr. Padgett. 4. Recently right lower extremity DVT. The patient is on Xarelto. 5. Severe peripheral vascular disease. The patient is on aspirin statin, and cilostazol. 6. Ischemic cardiomyopathy. 7. Normocytic anemia. 8. Iron and folate deficiency. 9. PVCs and asymptomatic nonsustained ventricular tachycardia during the hospital course noted. PRESENTING COMPLAINT: Numbness of both upper extremities. HISTORY OF PRESENTING COMPLAINT: Mr. Duncan is a 68-year-old male who is known to have a right parahilar lung cancer, presumably non-small cell follows up with Dr. Padgett and Dr. Blake comes to the emergency department because of neck pain with numbness of both upper extremities. Initially, there was concern that the patient could have a stroke so a CT scan was done which was unremarkable. We were consulted initially because of stroke. I re-evaluated the patient, and upon further questioning it became more apparent that his history was consistent with cervical pain with some numbness to both upper extremities worse on the right, which would be consistent with cervical radiculomyelopathy. Mr. Duncan was subsequently admitted for workup. From reviewing his previous imaging, Mr. Duncan has had actually an MRI of his cervical spine here in May of 2018. It did really show that the patient had multilevel degenerative disk disease with some narrowing of the spinal canal from primarily C3-C4-C4-C5. It appears that Mr. Duncan was seen in the neurosurgical services in [place] by Dr. Rey, but he was really not very pleased with Dr. Rey. In any case, he was admitted. He was neurologically observed. There was really not any changes. He continues to have some numbness, but he did not show any remarkable weakness or any changes. He was also treated for mild COPD exacerbation. Today, he had a CT scan of his neck which did not show any new changes. During the hospital course, he was also found to have occasional tachycardia with PVCs, and there was one instance where he had an asymptomatic nonsustained ventricular tachycardia. His magnesium was 2.2. All his other electrolytes from days before were normal. He was put on beta claus, and he felt okay. His discharge vitals showed pulse of 65. His blood pressure was 129/80 pulse of 20, temperature 98.1 degrees. He is currently completely asymptomatic however from cardiac standpoint but he still continues to complain of some numbness of the upper extremities bilateral. He has very good strength in both lower extremities. He does not have any urinary retention, urgency or rectal sphincter abnormalities. Mr. Duncan has had documented bowel movements on a regular basis during the hospital course, and he has been voiding without any difficulties. We think he is fairly stable for discharge. He has been advised that he does have some cervical disease, but he would have to follow up with Neurosurgery for further evaluation. Mr. Duncan did say he does not want to be seen by Dr. Rey. I have recommended that he follows up with Dr. Rosario as outpatient. Mr. Duncan has also been advised to follow up with Cardiology. He normally also follows up with Dr. Cespedes. Medication compliance and physician appointment compliance have all been addressed with him. TIME SPENT: Time spent for discharge is 36 minutes. cc: MD Claus Longoria MD Dr. Murray Dr. Shah Dr. McCormick [facility]
== END 2019-03-27 15:15 | disposition home or self-care (01) | DRG 552 ==
LOC: SUPCPDRO → ED 11:36 → 4N 17:31
PROVIDERS: ATTEND Internal Medicine

== ENCOUNTER 2019-05-18 00:10 | Inpatient (IN) ==
[2019-05-18] MEDS ORDERED: MORPHINE IV ONE (00:31)
[2019-05-18] MEDS ORDERED: NS 1,000 ML IV ONE ×2 (00:31→03:20)
[2019-05-18] MEDS ORDERED: ZOFRAN IV ONE (00:31)
[2019-05-18] MEDS ORDERED: XYLOCAINE 2% JELLY UROJECT TOP ONE (00:56)
[2019-05-18 01:18] LABS: URINE SOURCE CATH
[2019-05-18 01:26] LABS: BILIRUBIN URINE NEGATIVE (NEGATIVE); BLOOD URINE NEGATIVE (NEGATIVE); COLOR YELLOW; GLUCOSE URINE NEGATIVE (NEGATIVE); KETONE URINE NEGATIVE (NEGATIVE); LEUKOCYTES URINE LARGE (NEGATIVE); NITRITE URINE NEGATIVE (NEGATIVE); PROTEIN URINE 30 mg/dL (NEGATIVE); SP GRAVITY URINE 1.025; TURBIDITY URINE CLEAR (CLEAR); UR EPITHELIAL CELLS >10 /HPF (<10); URINE BACTERIA NEGATIVE /HPF; URINE RBC <10 /HPF (<10); URINE WBC TNTC /HPF (<10); UROBILINOGEN URINE 3 mg/dL (NORMAL)
[2019-05-18 01:32] LABS: EOS# 0.01 X1000 (0.0-0.7); EOS% 0.4 % (0.0-10.0); HEMATOCRIT 26.5 % (42.0-52.0); LYMPH# 0.49 X1000 (1.2-3.4); LYMPH% 20.2 % (20.5-51.1); MCH 28.6 PG (27-31); MCHC 30.2 g/dL (33-37); MCV 94.6 FL (81-99); MONO% 12.3 % (1.7-9.3); MPV 9.4 FL (7.4-10.4); NEUT# 1.63 X1000 (1.4-6.5); NEUT% 67.1 % (42.2-75.2); PLT 242 X1000 (130-400); RDW 16.9 % (11.5-14.5); WBC 2.43 X1000 (4.8-10.8)
[2019-05-18 01:35] LABS: AGAP 13; ALB/GLOB RATIO 1.3; ALBUMIN 3.7 g/dL (3.5-5.0); ALKALINE PHOSPHATASE 79 U/L (32-122); AMYLASE 53 U/L (20-200); BUN 18 mg/dL (8-22); CALCIUM 8.4 mg/dL (8.8-10.2); CHLORIDE 102 mmol/L (98-107); CK PROFILE 96 U/L (24-204); COSMO 290; ESTIMATED GFR > 60; GLUCOSE 122 mg/dL (70-104); GOT 11 U/L (10-34); GPT 9 U/L (10-44); LIPASE 20 U/L (13-60); POTASSIUM 4.4 mmol/L (3.5-5.1); SODIUM 144 mmol/L (136-145); TCO2 29 mmol/L (25-35); TOTAL BILIRUBIN 0.23 mg/dL (0.20-1.00); TOTAL PROTEIN 6.5 g/dL (6.3-8.3)
[2019-05-18 02:00] LABS: UR AMPHETAMINES QUAL NONE DETECTED (NONE DETECT); UR BARBITUATES QUAL NONE DETECTED (NONE DETECT); UR BENZODIAZEPIN QUAL NONE DETECTED (NONE DETECT); UR CANNABINOIDS QUAL PRESUMPTIVE POSITIVE (NONE DETECT); UR COCAINE QUAL NONE DETECTED (NONE DETECT); UR METHADONE QUAL NONE DETECTED (NONE DETECT); UR OPIATES QUAL NONE DETECTED (NONE DETECT); UR OXYCODONE QUAL NONE DETECTED (NONE DETECT); UR PCP QUAL NONE DETECTED (NONE DETECT)
--- NOTE | 2019-05-18 02:43 | PROVIDER DOCUMENTATION ---
This chart was entered by Shaheed Olivas Scribe, acting as scribe for Alpesh Glover MD. HPI-Abdominal Pain/GI Problem - General Chief Complaint: Abdominal Pain Stated Complaint: VOMITING Time Seen by Provider: 05/18/19 00:15 Source: patient, EMS Allergies/Adverse Reactions: Patient Allergies Allergy/AdvReac Type Severity Reaction Status Date / Time No Known Allergies Allergy Verified 05/18/19 00:32 Home Medications: Home Medication List Medication Instructions Recorded Confirmed Last Taken Type Gabapentin [Neurontin] 1 tab PO BID 11/10/18 05/18/19 03/24/19 History Lisinopril 40 mg PO DAILY 11/10/18 05/18/19 03/24/19 History Fluticasone/Umeclidin/Vilanter 1 ea INHALATION DAILY 03/24/19 05/18/19 03/24/19 History [Trelegy Ellipta 100-62.5-25] Rivaroxaban [Xarelto] 20 mg PO DAILY 03/24/19 05/18/19 03/23/19 History Tamsulosin [Flomax] 0.4 mg PO QHS 03/24/19 05/18/19 03/24/19 History Tramadol [Ultram] 50 mg PO BID 03/24/19 05/18/19 03/24/19 History Ferrous Sulfate 325 mg PO BID CC #120 tab 03/27/19 05/18/19 Unknown Rx Folic Acid 1 mg PO BID #120 tab 03/27/19 05/18/19 Unknown Rx Methocarbamol [Robaxin] 500 mg PO BID #120 tab 03/27/19 05/18/19 Unknown Rx Metoprolol [Lopressor] 25 mg PO BID #120 tab 03/27/19 05/18/19 Unknown Rx Pantoprazole [Protonix] 40 mg PO DAILY@0700 #30 tab 03/27/19 05/18/19 Unknown Rx Amoxicillin/Pot Clavulanate 500 mg PO DAILY 05/18/19 05/18/19 Unknown History [Augmentin] - History of Present Illness-ABD Nature of Presenting Problems: Pt is a 68 yom who presents to the ED via EMS with a CC of abdominal pain. Pt complains of pain to his lower abdomen. Pt also complains of nausea, dizziness, and vomiting. Pt reports his symptoms began approximately 6 hours prior to arrival to the ED. Pt reports he has not had a bowel movement or urinated in 24 hours. Pt reports a hx of HTN and lung cancer. Pt denies any chest pain, shortness of breath, or a headache. Abdominal Pain Onset Location: reports: generalized abdomen (Lower) Quality of Pain: reports: aching Severity in ED: reports: mild Onset/Duration: reports: 4-6 hours ago Timing: reports: still present Associated Symptoms: reports: constipation, dizziness, nausea, vomiting Dark Stools Present?: reports: none noticed Rectal Bleeding: reports: none Rectal Pain: reports: none Emesis Description: reports: none Bruising or Bleeding Gums?: No Similar Symptoms Previously?: No Recently seen or treated by another doctor?: No Review of Systems - Adult - REVIEW OF SYSTEMS - ADULT Constitutional: reports: see HPI Eyes: reports: no symptoms reported Ears, Nose, Mouth & Throat: reports: no symptoms reported Cardiovascular: reports: no symptoms reported Respiratory: reports: no symptoms reported Gastrointestinal: reports: see HPI, abdominal pain, nausea, vomiting Genitourinary: reports: no symptoms reported Musculoskeletal: reports: no symptoms reported Integumentary: reports: no symptoms reported Neurological: reports: see HPI, dizziness/vertigo Psychiatric: reports: no symptoms reported Endocrine: reports: no symptoms reported Hematologic/Lymphatic: reports: no symptoms reported Allergic/Immunologic: reports: no symptoms reported All Other Systems: Reviewed and Negative Past History - Adult - PAST MEDICAL HISTORY-ADULT Review of Records: reports: Old Records Reviewed, Nursing Assessment Review, Medications Reviewed, Social history reviewed & non-contributory. Major Childhood Illnesses: reports: denies history Cardiovascular: reports: HTN, hyperlipidemia, other (myocardial perfussion scan; mild to moderate defects in the inferior wall) Respiratory: reports: asthma, COPD, cancer, sleep apnea Gastrointestinal: reports: GERD Obstetrical/Gynecological: reports: denies history Genitourinary: reports: prostatitis Musculoskeletal: reports: orthopedic injury Neurological: reports: CVA 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 Other Conditions: reports: cataract/glaucoma - PRIOR SURGERIES/PROCEDURES Surgical/Procedure History: reports: orthopedic (extremity) - PRIOR HOSPITALIZATIONS Prior Hospitalizations: reports: for similar symptoms - IMMUNIZATION STATUS Childhood Immunizations: See Nurse Assessment Flu Vaccine: See Nurse Assessment - FAMILY HISTORY Family History: reviewed, not pertinent - SOCIAL HISTORY Smoking: non-smoker, quit greater than 1 year Substance Use: none/never, denies Alcohol Use Frequency: never Physical Exam-General - PHYSICAL EXAM-ADULT Initial Vital Signs Reviewed: Yes - CONSTITUTIONAL General Appearance: appears well, mild distress - EYES Eyes: PERRL/EOMI, pink conjunctivae - HEAD, EARS, NOSE, MOUTH & THROAT HENMT: normocephalic/atraumatic, moist mucous membranes - NECK Neck: non-tender, full range of motion - RESPIRATORY Respiratory: chest non-tender, no respiratory distress, no accessory muscle use, wheezing - CARDIOVASCULAR Cardiovascular: normal peripheral pulses, regular rate, rhythm, no edema - GASTROINTESTINAL (ABDOMEN) Abdominal Exam: abnormal bowel sounds, guarding, tenderness (generalized), other (Increased bowel sounds). negative: rigid - MUSCULOSKELETAL Back Exam: no CVA tenderness Extremity: normal range of motion, non-tender - SKIN Integumentary: normal color, warm/dry - NEUROLOGIC Neurologic: grossly normal, no motor/sensory deficits - PSYCHIATRIC Psych/Mental Status: normal mood/affect, normal thought content, normal thought process, oriented x 3 Progress - PLAN OF CARE/RESULTS Result Diagrams: 05/18/19 00:50 05/18/19 00:50 - EKG 1 Time of EKG reading by physician:: 02:42 EKG Interpretation (*Must complete 3 of following elements*): Abnormal Rate: 87 [place]: normal QRS: normal TN Interval: normal ST Wave: depressed, non-specific ST changes Comments: NSR, T wave inversion in anterio lateral leads. - CT/MRI 1 CT Study: Abdomen, Pelvis Impression: Abnormal, See EMR Report CT Results: high grade mechanical obstruction related to intususseption in mid jejunum. - CONSULTS/PCP/HOSPITALIST Notification #1 *Consult/PCP/Hospitalist*: d/w Dr Garcia Time Discussed: 02:25 Consult Disposition: Will see in ED #2 Consult: d/w Dr Orr Time Discussed: 02:43 Consult Disposition: Admit Departure - Departure Date of Disposition Decision: 05/18/19 Time of Disposition Decision: 02:39 DIAGNOSIS: Intestinal obstruction, Intussusception of jejunum Disposition: ADMITTED INPATIENT 09 Certified Medical Emergency: Emergent Condition: Stable Additional Instructions: ED Follow Up Instructions: You have been treated by a care provider in the Emergency Department. These instructions are being provided to you so you can have an understanding of how to care for yourself upon discharge. Upon discharge from the Emergency Department, you are responsible for making arrangements for follow-up care by a physician of your choice. Take all prescribed medications as directed. Return to the Emergency Department immediately for any new or worsening symptoms. You may call the Physician Referral phone number at [phone] to obtain a list of Physicians who are taking new patients. Referrals and Follow-Ups: Claus Cespedes MD [Primary Care Provider] - - Critical Care Note This patient required my direct & personal management of CC.: No Attestation - Physician/ AKILA Attestation Patient care was provided by Advanced Practice Provider:: No The physician spent face to face time with patient:: Yes Advanced Practice Provider documentation review:: Supervising physician onsite and consulted in the evaluation and care of this patient. The physician did have a face to face encounter with the patient. This chart was documented by the indicated scribe, (Shaheed Olivas Scribe) and accurately reflects the services I performed and decisions made by me, Alpesh Glover MD, as attested by the provider's signature.
[2019-05-18 02:46] LABS: INR 2.13; PROTIME 24.4 Seconds (11.0-16.0)
[2019-05-18 02:47] LABS: PTT 36.5 Seconds (22.3-41.8)
[2019-05-18] MEDS ORDERED: DILAUDID IV ONE (03:12)
--- NOTE | 2019-05-18 04:13 | HISTORY AND PHYSICAL ---
PRIMARY CARE PHYSICIAN: Dr. Soto. REASON FOR ADMISSION: An 8 hour history of intractable nausea and vomiting preceded by upper epigastric pain. HISTORY OF PRESENT ILLNESS: Mr. Jose Duncan is a 68-year-old man with a past medical history of lung cancer, COPD, recent DVT, severe peripheral vascular disease, hypertension and BPH, who comes in today complaining of colicky abdominal pain in the upper area followed by bilious nonbloody emesis a few times today. He says the pain has been constant, but by the time I saw him his pain had improved significantly after I put an NG tube, although I will state not much gastric aspirate was noticed. The patient denies any fever or chills. His last bowel movement was yesterday morning. He has says his urine output has declined. No cardiorespiratory complaints. No bleeding from any orifice. No cough. No fever. No focal neurological complaints. No recent change in medications. REVIEW OF SYSTEMS: Twelve system review was done with positive findings per the HPI. ALLERGIES: None. HOME MEDICATIONS: Flomax 0.4 mg at bedtime, Neurontin 300 mg b.i.d., Trelegy Ellipta 1 puff daily, tramadol 50 mg b.i.d., Xarelto 20 mg daily, ferrous sulfate 325 mg b.i.d., Lopressor 25 mg b.i.d., Robaxin 500 mg b.i.d., Protonix 40 mg daily. FAMILY HISTORY: The patient denies any family history of cancer or diabetes, lung surgery, right lung biopsy, bilateral eye laser surgery, TURP. SOCIAL HISTORY: He stopped smoking a year ago. No alcohol or drug use. LABORATORY DATA: CT scan shows high-grade small bowel obstruction with intussusception. White count is 2000, H H 8 and 26, platelet count 242,000, BUN 18, creatinine 1.2 glucose 122. Troponin is negative. Lactate 1.2. Lipase and amylase normal. PT 24, INR 2, PTT is normal. UDS negative. A urinalysis shows trj-ctehiraj-ra-count RBCs with greater than 10 epithelial cells. PHYSICAL EXAMINATION: GENERAL: A thin middle-aged man who appears to be chronically ill. VITAL SIGNS: Blood pressure 141/64, heart rate 86, respirations 18, temperature is 98, O2 sat is 95% on room air. GENERAL: He is alert and oriented to person, place and time. He is in no acute distress. He has an NG tube in his left nares. He had received about 2 mg of Dilaudid within the past hour. HEENT: Eyes ROBE, EOMI. He is anicteric, not pale. NECK: Supple. No JVD or carotid bruit. No thyromegaly. SKIN: He has good skin turgor. CHEST: Decreased air entry at the bases. CARDIOVASCULAR: First and second heart sounds heard. No gallops, murmurs or rubs. Regular. ABDOMEN: Slightly full, soft, with tenderness confined mainly to the epigastrium and upper half of the abdomen. Bowel sounds are hypoactive. Rectal exam deferred. EXTREMITIES: The patient has good distal pulse volumes which are regular, symmetrical. No edema, clubbing or cyanosis.Neurologic: No gross focal deficits. Skin: Intact. No breakdown, lesion or erythema. Skin exam is grossly normal. ASSESSMENT: 1. High-grade small bowel obstruction with intussusception. 2. COPD. 3. Lung cancer. 4. Hypertension. 5. BPH. PLAN: Dr. Garcia has been notified and is on his way to see the patient for evaluation. I doubt the patient will be able to go to the OR being that he has been on Xarelto and his numbers are a little high. Repeat a flat and upright x-ray later today. Continue with nebulized bronchodilators. Blood pressure will be managed with low-dose intravenous beta blockers. The patient has been typed and screened in anticipation of potential bleeding risk. Empiric antibiotics to be started. Fluids has been initiated. IV PPIs to be given. Observe the patient closely for acute urinary retention. cc: MD Cain Louis MD [facility]
[2019-05-18] MEDS ORDERED: FLAGYL 500 MG/NS 500 MG/100 ML IVPB IV ONE (04:18)
[2019-05-18] MEDS ORDERED: KEFZOL 2 GM/D5W 2 GM/50 ML IVPB IV ONE (04:18)
--- NOTE | 2019-05-18 05:21 | EKG Report ---
Test Performed on : 05/18/2019 02:42:59 AM Test Reason : SURG Blood Pressure : / mmHG Vent. Rate : 087 BPM Atrial Rate : 087 BPM P-R Int : 144 ms QRS Dur : 086 ms QT Int : 382 ms P-R-T Axes : 061 021 107 degrees QTc Int : 459 ms Normal sinus rhythm. Possible Left atrial enlargement Septal infarct (cited on or before 07-JUN-2009) T wave abnormality, consider lateral ischemia Abnormal ECG When compared with ECG of 27-MAR-2019 09:16, aberrant conduction. is no longer present Questionable change in initial forces of Septal leads Unconfirmed Result
--- NOTE | 2019-05-18 05:24 | GENERAL SURGERY CONSULTATION ---
DATE: 05/18/201 REASON FOR CONSULTATION: Intussusception and small bowel obstruction. HISTORY OF PRESENT ILLNESS: This is a 68-year-old male who presented to the emergency room with a less than 1-day history of severe abdominal pain with nausea and vomiting, no exacerbating factors. It has been relieved after placement of an NG tube. No fever or chills. He has not had a bowel movement in over a day. PAST MEDICAL HISTORY: Hypertension, lung cancer, COPD, BPH, gastroesophageal reflux disease, obstructive sleep apnea, right lower extremity DVT, degenerative disk disease. PAST SURGICAL HISTORY: Reviewed and non-pertinent. FAMILY HISTORY: Reviewed and noncontributory. SOCIAL HISTORY: He quit smoking last year. No alcohol or illicit drug use. CURRENT MEDICATIONS: Xarelto, Flomax, Ultram, folic acid, Robaxin, Lopressor, Protonix, lisinopril, Neurontin, Celebrex, Norvasc, hydrochlorothiazide, Cilostazol, and inhalers. REVIEW OF SYSTEMS: Ten systems reviewed and are negative except as noted above. PHYSICAL EXAMINATION: Vital Signs: Temperature is 98 degrees, pulse 82, respirations 20, blood pressure 155/85. General: He is awake and alert, no acute distress, he looks his stated age. HEENT: Normocephalic, atraumatic. Extraocular muscles are intact. Pupils are equal, round and reactive to light. Sclerae are anicteric. Moist mucous membranes. Hearing is grossly normal. No oral lesions. Neck: Supple. No thyromegaly. Cardiovascular: Regular rate and rhythm. Respiratory: Bilateral breath sounds. No work of breathing. Gastrointestinal: Soft, nondistended, mildly tender, hypoactive bowel sounds. No organomegaly or masses. No hernias appreciated. He has an NG tube in place. Extremities: No clubbing, cyanosis or edema. Skin: Warm and dry. No rash. Musculoskeletal: Moves all extremities equally and well. LABORATORY DATA: White blood cell count is 2.4, hemoglobin is 8.0, hematocrit is 26, platelet count is 242,000. Electrolytes reviewed and are unremarkable. Urinalysis shows many white cells, but no nitrite. IMAGING: CT of the abdomen and pelvis was reviewed and showed intussusception of the mid jejunum with associated small bowel obstruction. ASSESSMENT AND PLAN: A 68-year-old male with a small bowel obstruction due to intussusception. The underlying etiology is unclear. We are planning an exploratory laparotomy with probable bowel resection. I discussed the risks and benefits with him including bleeding, infection, injury to surrounding organs, anastomotic leak and other imponderables. He understands and agrees to proceed. We will need to correct his INR first. cc: Octavio Garcia MD
[2019-05-18] MEDS ORDERED: POTASSIUM CHLORIDE 10 MEQ in LR 1,000 ML IV ONE (05:33)
[2019-05-18] MEDS ORDERED: TYLENOL PO PRN (05:33)
[2019-05-18] MEDS ORDERED: SODIUM CHLORIDE 0.9% INJ ONE (05:33)
[2019-05-18] MEDS: ZOSYN 3.375 GM in NS 50 ML IV SCH ×5 (06:06→23:44)
[2019-05-18] MEDS: PROTONIX IV SCH (06:06)
--- NOTE | 2019-05-18 06:07 | Diag Imaging Result Doc PS360 ---
EXAM: CT ABD/PELVIS W/IV CONT ONLY HISTORY: abd pain TECHNIQUE: CT abdomen and pelvis with intravenous contrast COMPARISON: 12/30/2018 FINDINGS: No calcified gallstones. The gallbladder is contracted. Normal liver, spleen, pancreas, adrenal glands, and kidneys. No hydronephrosis. Prominent atherosclerosis. No aortic aneurysm. The stomach and duodenum are filled with fluid. The proximal J jejunum is dilated. There is an intussusception in the mid change in. Diameter of the abnormal bowel loops is 5.7 cm. The distal small bowel loops are not dilated. There is stool throughout the colon. There is a Balderas catheter in the urinary bladder. IMPRESSION: 1.High-grade obstruction secondary to intussusception in the mid jejunum 2.Severe atherosclerosis 3.A preliminary report was given at 2:26 AM This exam was performed using automated exposure control, adjustment of mA or kV according to patient size, and/or use of iterative reconstruction technique. Electronically signed by Fareed Hairston 05/18/2019 6:04 AM
[2019-05-18] MEDS ORDERED: NS 500 ML ONE (06:33)
[2019-05-18] MEDS: LOPRESSOR IV SCH ×4 (07:02→23:45)
--- NOTE | 2019-05-18 08:00 | Diag Imaging Result Doc PS360 ---
EXAM: CHEST-1 VIEW INDICATION: NGT PLACEMENT TECHNIQUE: One view COMPARISON: 03/24/2019 FINDINGS: The newly placed NG tube projects well below the diaphragm and the tip is assumed to be in the fundus of the stomach in the expected position. Limited views of the lung bases are grossly clear. Limited views of the mediastinum are unremarkable. IMPRESSION: Newly placed NG tube in expected position as described. Electronically signed by Leroy Cole 05/18/2019 7:57 AM
[2019-05-18] MEDS: DUONEB (A & A) INH SCH ×3 (09:35→21:15)
--- NOTE | 2019-05-18 11:45 | PROGRESS NOTE ---
DATE: 05/18/2019 SUBJECTIVE: This morning, Mr. Duncan refers to be doing slightly better. Denies any abdominal pain. He has an NG tube in place and a Balderas catheter. Mr. Duncan got admitted yesterday because of abdominal discomfort. He was worked up. A CT scan on admission did reveal a high-grade small- bowel obstruction secondary to intussusception in the mid jejunum. OBJECTIVE: Current Vital Signs: Blood pressure is 135/65, pulse 77, respirations 16, temperature is 98.6 degrees, the patient is saturating 96% on 2 L. General: Mr. Duncan is a 68-year-old gentleman. He is in bed. No distress. HEENT: Mucosa is pink and moist. Anicteric. Acyanotic. Neck: Supple. Chest: Clear to auscultation. No crepitations. No rhonchi. Cardiovascular: Regular rate and rhythm. Abdomen: Soft. Bowel sounds are slightly hyperactive, especially on the right side. Extremities: No pedal edema. 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 LABORATORY DATA: WBC is 2.48, hemoglobin 8.0, platelet count of 242,000. Chemistry is normal. The patient's INR is 2.13. ASSESSMENT: 1. High-grade small-bowel obstruction secondary to intussusception. The patient is currently on nasogastric tube, has been evaluated by Surgery, and there is a plan for surgical exploration later today. 2. History of lung cancer. The patient follows up with Dr. Padgett. 3. Chronic obstructive pulmonary disease, currently stable. 4. History of ischemic cardiomyopathy, currently asymptomatic. The patient has good ejection fraction on recent stress test. 5. Recent left lower extremity deep venous thrombosis. The patient was on Xarelto. This has been withheld because of pending surgery. INR is slightly supratherapeutic, so he is getting fresh frozen plasma. 6. Severe peripheral vascular disease. 7. Cervical diskopathy with radiculopathy on previous admission. cc: Ismael Calvert MD
[2019-05-18 12:31] LABS: INR 1.38; PROTIME 17.2 Seconds (11.0-16.0)
[2019-05-18] MEDS ORDERED: FENTANYL ONE ×2 (15:39→17:00)
[2019-05-18] MEDS ORDERED: DIPRIVAN 1% ONE (15:40)
[2019-05-18] MEDS ORDERED: SENSORCAINE 0.5%-EPI 1:200,000 ONE (15:53)
[2019-05-18] MEDS ORDERED: ZOFRAN ONE (15:57)
[2019-05-18] MEDS ORDERED: DECADRON ONE (15:57)
[2019-05-18] MEDS ORDERED: QUELICIN (DOSE) ONE (15:57)
[2019-05-18] MEDS ORDERED: STERILE WATER INJ. ONE (15:57)
[2019-05-18] MEDS ORDERED: NORCURON ONE (15:57)
[2019-05-18] MEDS ORDERED: NEOSTIGMINE ONE (15:57)
[2019-05-18] MEDS ORDERED: XYLOCAINE-MPF 2% ONE (15:57)
[2019-05-18] MEDS ORDERED: ROBINUL ONE (15:57)
[2019-05-18] MEDS ORDERED: EXPAREL 1.3% ONE (16:10)
[2019-05-18] MEDS ORDERED: MARCAINE 0.25% ONE (16:10)
[2019-05-18] MEDS: LR 1,000 ML IV SCH (19:02)
[2019-05-18] MEDS ORDERED: ZOFRAN IV PRN (19:25)
--- NOTE | 2019-05-18 19:26 | OPERATIVE NOTE ---
PROCEDURE DATE: 05/18/2019 PREOPERATIVE DIAGNOSES: 1. Intussusception and small-bowel obstruction. 2. Umbilical hernia. POSTOPERATIVE DIAGNOSES: 1. Intussusception and small-bowel obstruction. 2. Umbilical hernia. 3. Small bowel mass. PROCEDURE: Exploratory laparotomy with small-bowel resection and primary repair of umbilical hernia. SURGEON: Octavio Garcia MD. ANESTHESIA: General. ESTIMATED BLOOD LOSS: 30 mL. COMPLICATIONS: None apparent. SPECIMENS: Portion of proximal jejunum. FINDINGS: The patient had an intussusception of the proximal jejunum. This was due to a fairly large mass. This mass was approximately 15 to 20 cm from the ligament of Treitz. There was some associated lymphadenopathy in the underlying mesentery. The patient had a small reducible umbilical hernia as well. TECHNIQUE: The patient was brought to the operating room and placed supine on the table. General anesthesia was induced. He was prepped and draped in usual sterile fashion. A midline incision was made with a knife down through the skin and subcutaneous tissue sharply. The fascia was incised with cautery, and the peritoneum was entered bluntly. I then lengthened the peritoneal and fascial incision with cautery without injuring the underlying bowel. Beginning at the ligament of Treitz, I began running the bowel from proximal to distal and quickly found the intussusception. I was able to milk the bowel in such a way that this reduced easily. We found a fairly large mass with associated enlarged lymph nodes in the mesentery. I proceeded to do a segmental resection. A wound protector was placed. The bowel was transected a little over 5 cm proximally and distally with linear blue REANNA staplers. The intervening mesentery was divided between clamps and 3-0 and 2-0 silk ties. We took several of the enlarged lymph nodes along with the mesenteric envelope. After the specimen was removed off the field, our proximal and distal ends were evaluated. There appeared to be good blood flow. Then I brought them together in an antiperistaltic configuration. I excised the antimesenteric corner of the staple line with curved Butt's and passed another linear 60 blue REANNA stapler down each limb creating a [id number] antimesenteric anastomosis. The common enterotomy was closed with a running 2-0 Vicryl suture in 2 directions. The anastomosis was widely patent. The staple lines on the end of the bowel were also oversewn with several interrupted 3-0 silk and 3-0 Vicryl to control some bloody ooze from the staple lines. At this point, I was satisfied with hemostasis of the anastomosis. It appeared to be watertight. I closed the mesenteric defect with interrupted 3-0 silk. I ran the rest of the small bowel all the way down to the cecum. There were no other abnormalities. The liver was palpated and was felt to be smooth and without any mass. The omentum also appeared to be normal. The NG tube was confirmed to be along the greater curve of the stomach. I then returned the bowel all to its anatomic position and closed the fascia with a running #1 Vicryl and closed the peritoneum with a running #1 Vicryl and the fascia with a running looped #1 Maxon incorporating the umbilical hernia defect into this closure. The skin was closed with skin clips. There were no apparent complications. He was awakened in stable condition and transferred to recovery room. cc: Octavio Garcia MD
[2019-05-19] MEDS: DUONEB (A & A) INH SCH ×3 (03:02→22:50)
[2019-05-19] MEDS: LOPRESSOR IV SCH ×4 (04:50→22:33)
[2019-05-19] MEDS: ZOSYN 3.375 GM in NS 50 ML IV SCH ×4 (04:51→22:33)
[2019-05-19] MEDS: PROTONIX IV SCH (05:39)
[2019-05-19] MEDS: LR 1,000 ML IV SCH ×2 (05:48→16:24)
[2019-05-19 06:07] LABS: HEMATOCRIT 23.1 % (42.0-52.0); LYMPH# 0.33 X1000 (1.2-3.4); LYMPH% 15.3 % (20.5-51.1); MCH 28.6 PG (27-31); MCHC 30.3 g/dL (33-37); MCV 94.3 FL (81-99); MONO# 0.19 X1000 (0.11-0.59); MONO% 8.8 % (1.7-9.3); MPV 9.2 FL (7.4-10.4); NEUT# 1.64 X1000 (1.4-6.5); NEUT% 75.9 % (42.2-75.2); PLT 232 X1000 (130-400); RBC 2.45 XMIL (4.7-6.1); RDW 16.4 % (11.5-14.5); WBC 2.16 X1000 (4.8-10.8)
[2019-05-19 06:30] LABS: AGAP 12; BUN 10 mg/dL (8-22); CALCIUM 8.5 mg/dL (8.8-10.2); CHLORIDE 107 mmol/L (98-107); COSMO 290; CREATININE 0.9 mg/dL (0.7-1.2); ESTIMATED GFR > 60; GLUCOSE 136 mg/dL (70-104); MAGNESIUM 1.9 mg/dL (1.5-2.7); POTASSIUM 4.3 mmol/L (3.5-5.1); SODIUM 145 mmol/L (136-145); TCO2 26 mmol/L (25-35)
[2019-05-19 07:24] LABS: INR 1.31; PROTIME 16.5 Seconds (11.0-16.0)
[2019-05-19] MEDS: LOVENOX SUBQ SCH ×2 (09:21→20:32)
[2019-05-19] MEDS: MORPHINE IV PRN ×3 (09:45→17:14)
--- NOTE | 2019-05-19 16:08 | PROGRESS NOTE ---
DATE: 05/19/2019 Today Mr. Duncan refers to be hurting and he was requesting if he could have anything, even water, to drink. Of note, Mr. duncan underwent exploratory laparotomy yesterday whereby because of intussusception of the small bowel and a small bowel obstruction, he was found to have a small bowel mass of the jejunum. OBJECTIVE: Vital signs: Blood pressure is 156/50, pulse of 91, respiration is 16, temperature is 98.6 degrees. Patient is saturating 95% on room air. General: Mr. Duncan is a 68-year-old gentleman. He was in bed. He was in mild discomfort from pain. HEENT: Mucosa is pink and moist. Anicteric. Acyanotic. Neck: Supple. Chest: Good air entry bilaterally. There were no crepitations, no rhonchi. Cardiovascular: Regular rate and rhythm. No murmurs, no rubs, no gallops. GI: Abdomen is soft, is distended, minimally tender almost everywhere. There is a new surgical incision on the anterior abdominal wall which is covered with sterile dressing. Bowel sounds were present but slightly hypoactive. Extremities: No pedal edema. Balderas catheter was in place. SCLEROSCOPE TESTER: Patient was awake, alert, and oriented. LABORATORY DATA: CBC shows white cell count of 2.16, hemoglobin is 2.0. Chemistry is also reviewed which is completely within normal range. No imaging studies today. So far urine culture has been negative. Patient is currently on Zosyn. ASSESSMENT: 1. Small bowel obstruction secondary to intussusception. Patient is status post exploratory laparotomy with small-bowel resection and primary repair of an umbilical hernia. There was also removal of a jejunal mass which was approximately 15 to 20 cm from the ligament of Treitz per the surgical documentation. 2. History of lung cancer. Patient follows up with Dr. Padgett. 3. History of COPD, currently stable and not in exacerbation. 4. Ischemic cardiomyopathy with good ejection fraction on recent stress test. 5. Recent left lower extremity deep vein thrombosis. The patient is on Lovenox, therapeutic. 6. Severe peripheral vascular disease noted. 7. Cervical discopathy with radiculopathy on previous admission noted. 8. Normocytic anemia with leukopenia. We will check the patient's iron stores. We will also keep eye on the hemoglobin. If it is less than 7 tomorrow, we will transfuse or if there is any obvious signs of ongoing bleeding, we will transfuse. cc: Ismael Calvert MD
--- NOTE | 2019-05-19 18:39 | GENERAL SURGERY PROGRESS NOTE ---
DATE: 05/19/2019 SUBJECTIVE: The patient complains of abdominal soreness. No nausea or vomiting. OBJECTIVE: Vital Signs: He is afebrile. Vital signs are stable. General: He is awake, alert, oriented x3. No acute distress. NG tube 1000 mL. Cardiovascular: Regular rate and rhythm. Respiratory: Bilateral breath sounds. Gastrointestinal: Soft, nondistended appropriately tender. Incisional dressing is clean and dry. LABORATORY: White blood cell count 2.1, hemoglobin 7, hematocrit 23, platelet count 232,000. INR 1.3. Electrolytes reviewed and unremarkable. ASSESSMENT AND PLAN: A 68-year-old male postoperative day 1 exploratory laparotomy with small- bowel resection for obstructing tumor and intussusception. He will remain n.p.o. with an NG tube for now. We will begin to mobilize him over the weekend. He also has history of DVT. We had held his Xarelto. I have started him back on therapeutic Lovenox. Dr. Del Toro will make rounds for me over the weekend. cc: Octavio Garcia MD
[2019-05-20] MEDS: MORPHINE IV PRN ×5 (01:56→23:25)
[2019-05-20] MEDS: DUONEB (A & A) INH SCH ×5 (03:05→19:08)
[2019-05-20] MEDS: LR 1,000 ML IV SCH (03:40)
[2019-05-20] MEDS: ZOSYN 3.375 GM in NS 50 ML IV SCH ×3 (05:26→17:07)
[2019-05-20] MEDS: PROTONIX IV SCH (05:27)
[2019-05-20] MEDS: LOPRESSOR IV SCH ×4 (05:27→23:26)
--- NOTE | 2019-05-20 06:18 | GENERAL SURGERY PROGRESS NOTE ---
DATE: 05/20/2019 SUBJECTIVE: Patient doing okay. He has not passed any gas. He is still a little sick to his stomach. OBJECTIVE: Vital Signs: Patient is currently afebrile. His vital signs are stable. General: No acute distress. Cardiovascular: Regular rate and rhythm. Lungs: Grossly clear. Abdomen: Soft, appropriately tender. Incision is healing. ASSESSMENT AND PLAN: A 68-year-old gentleman postoperative day #2 from exploratory laparotomy and small-bowel resection for obstructing tumor and intussusception Postoperative state. At this time, we will continue nasogastric tube decompression until he has some more definitive return of bowel function. Otherwise, continue supportive care. cc: Thuan Del Toro MD
[2019-05-20 07:38] LABS: EOS# 0.01 X1000 (0.0-0.7); EOS% 0.5 % (0.0-10.0); HEMATOCRIT 23.4 % (42.0-52.0); HEMOGLOBIN 6.9 g/dL (14.0-18.0); LYMPH# 0.59 X1000 (1.2-3.4); LYMPH% 26.9 % (20.5-51.1); MCHC 29.5 g/dL (33-37); MCV 95.1 FL (81-99); MONO# 0.32 X1000 (0.11-0.59); MONO% 14.6 % (1.7-9.3); MPV 9.2 FL (7.4-10.4); NEUT# 1.27 X1000 (1.4-6.5); PLT 268 X1000 (130-400); RBC 2.46 XMIL (4.7-6.1); WBC 2.19 X1000 (4.8-10.8)
[2019-05-20 08:01] LABS: AGAP 14; ALBUMIN 2.8 g/dL (3.5-5.0); ALKALINE PHOSPHATASE 56 U/L (32-122); BUN 8 mg/dL (8-22); CALCIUM 8.2 mg/dL (8.8-10.2); CHLORIDE 105 mmol/L (98-107); COSMO 282; CREATININE 0.9 mg/dL (0.7-1.2); ESTIMATED GFR > 60; GLUCOSE 82 mg/dL (70-104); GOT 10 U/L (10-34); GPT 6 U/L (10-44); IRON SATURATION 5 %; MAGNESIUM 1.9 mg/dL (1.5-2.7); POTASSIUM 3.8 mmol/L (3.5-5.1); SODIUM 143 mmol/L (136-145); TCO2 24 mmol/L (25-35); TIBC 187 ug/dL; TOTAL BILIRUBIN 0.22 mg/dL (0.20-1.00); TOTAL IRON 10 ug/dL (53-167); TOTAL PROTEIN 5.6 g/dL (6.3-8.3); UNBOUND IRON 177 ug/dL (112-346)
--- NOTE | 2019-05-20 08:07 | PROGRESS NOTE ---
DATE: 05/20/2019 SUBJECTIVE: This morning Mr. Duncan refers to be doing fairly okay. Still has some abdominal discomfort. Has not had any bowel movement. He is not passing any gas. OBJECTIVE: Vital signs: Blood pressure is 167/73, pulse of 81, respirations 20, temperature 98.8 degrees. General: Mr. Duncan is a 68-year-old gentleman. He is in bed, no distress. HEENT: Mucosa is pink and moist. Anicteric. Acyanotic. Neck: Supple. Chest: Good air entry bilaterally. Few crackles posteriorly. Cardiovascular: Regular rate and rhythm. GI: Abdomen is soft, minimally distended. It is slightly tender everywhere. There is a surgical incision on the anterior abdominal wall which is covered with sterile dressing. Bowel sounds are slightly hypoactive. Extremities: No pedal edema. Balderas catheter is still in place. 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 The patient's I's and O's: Urine output was 1330. He has a positive balance of 792. His laboratory data is not ready at the time of the dictation. ASSESSMENT: 1. Small bowel obstruction secondary to intussusception. Patient is status post exploratory laparotomy with small-bowel resection and primary repair of an umbilical hernia. There was also removal of a jejunal mass which was approximately 15 to 20 cm from the ligament of Treitz. Today is day 2 postop. The patient has not had any bowel movement and is not passing any gas, so we will continue NPO, NG tube for gastric decompression and follow up with further recommendations from Surgery. 2. Newly diagnosed jejunal mass, presumably malignant. We are pending the pathology report. 3. History of lung cancer. Patient follows up with Dr. Michelle. 4. COPD, currently not in exacerbation. 5. History of ischemic cardiomyopathy with good ejection fraction on recent stress test. 6. Recently diagnosed left lower extremity deep vein thrombosis. The patient is on therapeutic Lovenox. 7. Severe peripheral vascular disease. 8. Cervical discopathy with radiculopathy noted. 9. Normocytic anemia with leukopenia. We are still pending the lab results for today and make changes accordingly. So today we are going to discontinue the IV fluids and start Mr. Duncan on Clinimix with lipid infusion. Re-evaluate his lab works later on today and make changes accordingly. cc: Ismael Calvert MD
[2019-05-20 08:16] LABS: FERRITIN 79 ng/mL (30-400)
[2019-05-20] MEDS: CLINIMIX E 4.25%-5% SOLUTION 1,000 ML IV SCH ×2 (08:17→21:25)
[2019-05-20] MEDS: LIPOSYN 20% 250 ML IV SCH (08:18)
[2019-05-20] MEDS: LOVENOX SUBQ SCH ×2 (08:37→20:08)
[2019-05-20] MEDS ORDERED: NS 500 ML IV ONE (10:29)
[2019-05-21] MEDS: ZOSYN 3.375 GM in NS 50 ML IV SCH ×5 (01:03→23:45)
[2019-05-21] MEDS: DUONEB (A & A) INH SCH ×5 (03:12→19:20)
[2019-05-21] MEDS: LOPRESSOR IV SCH ×4 (05:08→23:45)
[2019-05-21] MEDS: PROTONIX IV SCH (05:08)
[2019-05-21] MEDS: MORPHINE IV PRN ×6 (05:08→23:42)
[2019-05-21 07:01] LABS: BASO# 0.01 X1000 (0.0-0.2); BASO% 0.4 % (0.0-0.8); EOS# 0.04 X1000 (0.0-0.7); EOS% 1.5 % (0.0-10.0); HEMATOCRIT 29.5 % (42.0-52.0); HEMOGLOBIN 9.2 g/dL (14.0-18.0); LYMPH% 18.6 % (20.5-51.1); MCH 28.8 PG (27-31); MCHC 31.2 g/dL (33-37); MCV 92.2 FL (81-99); MONO% 11.2 % (1.7-9.3); MPV 9.4 FL (7.4-10.4); NEUT# 1.84 X1000 (1.4-6.5); NEUT% 68.3 % (42.2-75.2); PLT 275 X1000 (130-400); RDW 16.6 % (11.5-14.5); WBC 2.69 X1000 (4.8-10.8)
--- NOTE | 2019-05-21 07:13 | GENERAL SURGERY PROGRESS NOTE ---
DATE: 05/21/2019 SUBJECTIVE: Patient seems to be doing okay but he has not passed any gas. OBJECTIVE: Vital Signs: The patient is currently afebrile. His vital signs are stable. General Examination: No acute distress. Cardiovascular: Regular rate and rhythm. Lungs: Grossly clear. Abdomen: Soft, appropriately tender. Hypoactive bowel sounds. ASSESSMENT AND PLAN: A 68-year-old gentleman, currently postoperative day #3 from exploratory laparotomy with small bowel obstruction for obstructing tumor intussusception. Postoperative state. At this time, continue nasogastric tube decompression and await return of bowel function. He still likely has some degree of a postoperative ileus. cc: Thuan Del Toro MD
[2019-05-21 07:17] LABS: AGAP 11; ALBUMIN 2.8 g/dL (3.5-5.0); ALKALINE PHOSPHATASE 56 U/L (32-122); BUN 11 mg/dL (8-22); CALCIUM 8.7 mg/dL (8.8-10.2); CHLORIDE 107 mmol/L (98-107); COSMO 285; CREATININE 0.8 mg/dL (0.7-1.2); ESTIMATED GFR > 60; GLUCOSE 113 mg/dL (70-104); GOT 11 U/L (10-34); GPT 7 U/L (10-44); SODIUM 143 mmol/L (136-145); TCO2 25 mmol/L (25-35); TOTAL BILIRUBIN 0.42 mg/dL (0.20-1.00); TOTAL PROTEIN 5.7 g/dL (6.3-8.3)
[2019-05-21] MEDS: LOVENOX SUBQ SCH ×2 (08:37→21:19)
[2019-05-21] MEDS: LIPOSYN 20% 250 ML IV SCH (08:38)
[2019-05-21] MEDS: CLINIMIX E 4.25%-5% SOLUTION 1,000 ML IV SCH ×2 (08:41→21:18)
--- NOTE | 2019-05-21 14:20 | PROGRESS NOTE ---
DATE: 05/21/2019 SUBJECTIVE: Today Mr. Duncan refers to be doing fairly okay. Still has some abdominal discomfort but otherwise unremarkable. OBJECTIVE: Vital signs: Blood pressure is 155/77, pulse of 72, respirations 16, temperature 98.1 degrees. General: Mr. Duncan is a 68-year-old gentleman. He is in bed, no distress. HEENT: Mucosa is pink and moist. Anicteric. Acyanotic. Neck: Supple. Chest: Good air entry bilaterally. Few crackles posteriorly. Cardiovascular: Regular rate and rhythm. GI: Abdomen is soft, minimally distended everywhere. There is a surgical incision in the anterior abdominal wall which is covered with sterile dressing. It has minimal soiling. Bowel sounds are present but hypoactive in all 4 quadrants. Extremities: No pedal edema. Balderas catheter in place. PLASTIC PARTS FABRICATOR: Patient is awake, alert, and oriented. The patient's ins and outs: urine output was 1700. The NG tube output was about 350. ASSESSMENT: 1. Small bowel obstruction due to intussusception. The patient is status post exploratory laparotomy with small-bowel resection and primary repair of an umbilical hernia. Today is date 3 postop. The patient continues to be n.p.o. NG tube is still in place. 2. Newly diagnosed jejunal mass. Presumably malignant. We are still pending the pathology. This was removed during surgery. 3. History of lung cancer. Patient follows up with Dr. Padgett. 4. Chronic obstructive pulmonary disease. Currently not in exacerbation. 5. History of ischemic cardiomyopathy with normal ejection fraction. 6. Recently diagnosed left lower extremity deep vein thrombosis. The patient is on therapeutic Lovenox. 7. Severe peripheral vascular disease. 8. History of cervical discopathy with radiculopathy. 9. Normocytic anemia with leukopenia. In general, I think Mr. Duncan is doing okay. We are still pending the pathology report. The patient was evaluated by Surgery today. The continue to recommend n.p.o. and continue with NG tube for gastric decompression and Clinimix with lipid infusion for nutritional support. cc: Ismael Calvert MD
[2019-05-22] MEDS: DUONEB (A & A) INH SCH ×6 (00:40→22:22)
[2019-05-22] MEDS: MORPHINE IV PRN ×5 (04:35→18:45)
[2019-05-22] MEDS: LOPRESSOR IV SCH ×4 (06:17→22:42)
[2019-05-22] MEDS: PROTONIX IV SCH (06:18)
[2019-05-22] MEDS: ZOSYN 3.375 GM in NS 50 ML IV SCH ×4 (06:18→22:41)
[2019-05-22 07:29] LABS: EOS# 0.04 X1000 (0.0-0.7); EOS% 1.5 % (0.0-10.0); HEMOGLOBIN 9.7 g/dL (14.0-18.0); LYMPH# 0.51 X1000 (1.2-3.4); LYMPH% 18.9 % (20.5-51.1); MCH 28.7 PG (27-31); MCHC 31.3 g/dL (33-37); MCV 91.7 FL (81-99); MONO% 11.1 % (1.7-9.3); MPV 9.4 FL (7.4-10.4); NEUT# 1.85 X1000 (1.4-6.5); NEUT% 68.5 % (42.2-75.2); PLT 329 X1000 (130-400); RBC 3.38 XMIL (4.7-6.1)
[2019-05-22 07:56] LABS: AGAP 14; ALBUMIN 3.1 g/dL (3.5-5.0); ALKALINE PHOSPHATASE 64 U/L (32-122); BUN 14 mg/dL (8-22); CALCIUM 8.9 mg/dL (8.8-10.2); CHLORIDE 104 mmol/L (98-107); COSMO 282; CREATININE 0.7 mg/dL (0.7-1.2); ESTIMATED GFR > 60; GLUCOSE 108 mg/dL (70-104); GOT 18 U/L (10-34); GPT 12 U/L (10-44); POTASSIUM 4.1 mmol/L (3.5-5.1); SODIUM 141 mmol/L (136-145); TCO2 23 mmol/L (25-35); TOTAL BILIRUBIN 0.32 mg/dL (0.20-1.00); TOTAL PROTEIN 6.1 g/dL (6.3-8.3)
[2019-05-22] MEDS: LOVENOX SUBQ SCH ×2 (08:35→22:41)
[2019-05-22] MEDS: CLINIMIX E 4.25%-5% SOLUTION 1,000 ML IV SCH ×2 (10:37→22:40)
[2019-05-22] MEDS: LIPOSYN 20% 250 ML IV SCH (12:32)
--- NOTE | 2019-05-22 16:15 | PROGRESS NOTE ---
DATE: 05/22/2019 SUBJECTIVE: This morning Mr. Duncan refers to be doing okay. He said he was hurting and that we should optimize his pain medication, however advised him that we want to be extremely cautious with the use of narcotic because we trying to gauge his bowel function. Patient denies having any bowel movement but he said he had some gas. OBJECTIVE: Vitals: Blood pressure is 162/84, pulse of 69, respiration is 20, temperature 98.7 degrees. General: Mr. Duncan is a 68-year-old gentleman he is in bed, no distress. Mucosa is pink and moist. Anicteric. Acyanotic. NG tube is in place. Chest: Good air entry bilateral. No crepitations. No rhonchi. Cardiovascular: Regular rate and rhythm. Abdomen: Soft, is minimally tender everywhere, there is a surgical incision in the anterior abdominal wall which is covered with sterile dressing. Bowel sounds are present but hypoactive. Extremities: No pedal edema. WELL BLOWER: Patient is awake, alert and oriented. : There is a Balderas catheter in place. LABORATORY DATA: WBC is 2.70, hemoglobin 9.7, platelet count of 329,000. Chemistry is completely normal. No imaging studies today. CURRENT MEDICATIONS: Have all been reviewed, no changes, patient is still on antimicrobial therapy (Zosyn today day 4). ASSESSMENT: 1. Small bowel obstruction due to intussusception. Patient is status post exploratory laparotomy with small-bowel resection and primary repair of an umbilical hernia. Today is day 4 postop, still in nasogastric tube, we still awaiting on bowel function. 2. Newly diagnosed jejunal mass still pending the pathology report. I just called pathology and report is not ready. 3. History of lung cancer. Patient follows up with Dr. Padgett. 4. Chronic obstructive pulmonary disease currently not in exacerbation. 5. History of ischemic cardiomyopathy with normal ejection fraction. 6. Severe peripheral vascular disease. 7. History of cervical discopathy with radiculopathy. 8. Normocytic anemia with leukopenia improving. 9. Suspected postoperative ileus. We will try and avoid as much narcotic as possible. So in general I think Mr. Duncan is doing fairly okay. He said he passed some gas today, is still having quite a big amount of NG tube output. We are going to continue with the current antibiotics, will continue with the Clinimix with lipid infusion and reevaluate him tomorrow, will also be pending further recommendations from surgery. I called pathology today, the report is not ready on the jejunal mass. cc: Ismael Calvert MD MTDD
[2019-05-23] MEDS: DUONEB (A & A) INH SCH ×4 (02:59→18:57)
[2019-05-23] MEDS: CLINIMIX E 4.25%-5% SOLUTION 1,000 ML IV SCH ×2 (03:07→14:28)
[2019-05-23] MEDS: MORPHINE IV PRN ×5 (04:27→21:32)
[2019-05-23] MEDS: PROTONIX IV SCH (05:39)
[2019-05-23] MEDS: LOPRESSOR IV SCH ×3 (05:39→17:48)
[2019-05-23] MEDS: ZOSYN 3.375 GM in NS 50 ML IV SCH (05:44)
[2019-05-23] MEDS: LIPOSYN 20% 250 ML IV SCH (05:44)
[2019-05-23] MEDS: LOVENOX SUBQ SCH ×3 (07:49→21:32)
--- NOTE | 2019-05-23 12:05 | GENERAL SURGERY PROGRESS NOTE ---
DATE: 05/23/2019 SUBJECTIVE: The patient reports abdominal soreness and intermittent nausea. No vomiting. He has had flatus. His NG tube has been removed. OBJECTIVE: He is afebrile. Vital signs are stable.General: He is awake and alert. No acute distress. CV: Regular rate and rhythm. Respiratory: Clear bilateral breath sounds. No work of breathing. Gastrointestinal: Soft, nondistended. He does have good bowel sounds. Incisional dressings clean and dry. He is appropriately tender. Urine output 2875. LABORATORY: None today. IMAGING: None today. ASSESSMENT AND PLAN: A 68-year-old male status post small bowel resection for a malignant mass. Final pathology is pending. We will slowly advance his diet as tolerated. I will consult physical therapy today to help with his weakness and mobility. He is on Lovenox for history of DVT and Clinimix for nutrition at this time. We are going to stop his Zosyn today as well. cc: Octavio Garcia MD
--- NOTE | 2019-05-23 15:56 | PROGRESS NOTE ---
DATE: 05/23/2019 SUBJECTIVE: This morning Mr. Duncan refers to be doing fairly okay. The daughter was at the bedside at the time of the encounter. He said he did eat some breakfast early on today, and after that he felt slight pain. OBJECTIVE: Vital Signs: Blood pressure 156/100, pulse of 80, respirations 20, and temperature 99.2 degrees. General: Mr. Duncan is a 68-year-old gentleman. He was in bed in no distress. HEENT: Mucosa was pink and moist. Anicteric. Acyanotic. Neck: Supple. Chest: Clear to auscultation. No crepitations. No rhonchi. Cardiovascular: Regular rate and rhythm. Abdomen: Soft, minimally tender around the surgical incision site which was covered also with sterile dressing. Bowel sounds were present but slightly hypoactive. Extremities: No pedal edema. 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 Patient still had a Balderas catheter in place. LABORATORY DATA: None for this morning. ASSESSMENT: 1. Small bowel obstruction due to intussusception. Patient is status post exploratory laparotomy with small-bowel resection and primary repair of umbilical hernia. Today is day 5. Postop NG tube was removed yesterday. He was started on some diet by Surgery. 2. Newly diagnosed jejunal mass. Still pending the pathology report. 3. History of lung cancer. Patient follows up with Dr. Parr. 4. COPD. Currently not in exacerbation. 5. History of ischemic cardiomyopathy with normal ejection fraction. 6. Severe peripheral vascular disease noted. 7. Postoperative ileus. We will encourage Mr. Duncan to get around and be mobile to help mobilizing the gut. 8. Normocytic anemia with leukopenia improving. 9. History of cervical discopathy with radiculopathy. 10. Recently diagnosed left lower extremity deep vein thrombosis. Patient is on therapeutic Lovenox. PLAN: So, in general, I think Mr. Duncan is doing well. He is on clear liquids. He seems to be tolerating that. However, today, he did make mention that it hurts slightly after he ate. Otherwise, we are going to continue observing him for now. cc: Ismael Calvert MD
[2019-05-24] MEDS: DUONEB (A & A) INH SCH ×5 (03:09→21:20)
[2019-05-24] MEDS: CLINIMIX E 4.25%-5% SOLUTION 1,000 ML IV SCH ×2 (03:41→15:42)
[2019-05-24] MEDS: MORPHINE IV PRN ×4 (03:41→17:45)
[2019-05-24] MEDS: PROTONIX IV SCH (04:47)
[2019-05-24] MEDS: LOPRESSOR IV SCH ×5 (04:47→22:58)
[2019-05-24] MEDS: LIPOSYN 20% 250 ML IV SCH (04:47)
[2019-05-24 07:17] LABS: BASO# 0.01 X1000 (0.0-0.2); BASO% 0.3 % (0.0-0.8); EOS# 0.02 X1000 (0.0-0.7); EOS% 0.6 % (0.0-10.0); HEMATOCRIT 31.7 % (42.0-52.0); HEMOGLOBIN 9.9 g/dL (14.0-18.0); LYMPH# 0.57 X1000 (1.2-3.4); LYMPH% 18.2 % (20.5-51.1); MCH 28.7 PG (27-31); MCHC 31.2 g/dL (33-37); MCV 91.9 FL (81-99); MONO# 0.38 X1000 (0.11-0.59); MONO% 12.1 % (1.7-9.3); MPV 9.6 FL (7.4-10.4); NEUT# 2.15 X1000 (1.4-6.5); NEUT% 68.8 % (42.2-75.2); PLT 360 X1000 (130-400); RBC 3.45 XMIL (4.7-6.1); WBC 3.13 X1000 (4.8-10.8)
[2019-05-24] MEDS: LOVENOX SUBQ SCH ×3 (07:29→22:58)
[2019-05-24 07:47] LABS: AGAP 4; ALB/GLOB RATIO 0.9; ALBUMIN 3.1 g/dL (3.5-5.0); ALKALINE PHOSPHATASE 84 U/L (32-122); BUN 16 mg/dL (8-22); CALCIUM 9.1 mg/dL (8.8-10.2); CHLORIDE 106 mmol/L (98-107); COSMO 281; CREATININE 0.8 mg/dL (0.7-1.2); ESTIMATED GFR > 60; GLUCOSE 113 mg/dL (70-104); GOT 31 U/L (10-34); GPT 35 U/L (10-44); POTASSIUM 4.1 mmol/L (3.5-5.1); SODIUM 140 mmol/L (136-145); TCO2 30 mmol/L (25-35); TOTAL BILIRUBIN 0.28 mg/dL (0.20-1.00); TOTAL PROTEIN 6.4 g/dL (6.3-8.3)
--- NOTE | 2019-05-24 14:38 | GENERAL SURGERY PROGRESS NOTE ---
DATE: 05/24/2019 SUBJECTIVE: He denies significant abdominal pain, nausea, or vomiting. He is tolerating a liquid diet. He has passed gas. OBJECTIVE: He is afebrile. Vital signs are stable. General: He is awake, alert, and oriented x3. No acute distress. GI: Soft. Appropriately tender. Nondistended. He does have bowel sounds. Incision is clean, dry, and intact. Laboratory: CBC and metabolic profile reviewed and unremarkable. ASSESSMENT AND PLAN: A 68-year-old male status post small bowel resection for obstruction due to tumor with intussusception. The pathology is pending. His bowel function appears to be improving. We will advance his diet. I have encouraged more ambulation. cc: Octavio Garcia MD
[2019-05-24] MEDS: NORCO-5 PO PRN ×2 (15:42→22:58)
--- NOTE | 2019-05-24 17:59 | PROGRESS NOTE ---
DATE: 05/24/2019 SUBJECTIVE: Today Mr. Duncan referred to be doing a little better. 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 He has been able to tolerate his full liquid diet today. OBJECTIVE: Vital signs: Blood pressure is 156/84, pulse of 93, respirations 20, temperature is 98.6 degrees. On general exam, Mr. Duncan is a 68-year-old gentleman. He was in bed in no distress. Mucosa is pink and moist. Anicteric. Acyanotic. Neck was supple. Chest was clear to auscultation. No crepitations. No rhonchi. Cardiovascular: Regular rate and rhythm. No murmurs, no rubs, no gallops. GI: Abdomen was soft. There is a midline incision which is covered with a sterile dressing. Bowel sounds are present but slightly hypoactive. Extremities: No pedal edema. 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 Balderas catheter is still in place. LABORATORY DATA: WBC is up to 3.13, hemoglobin is 9.9, platelet count of 360,000. Chemistry is also reviewed, completely within normal range. The pathology report is still pending. ASSESSMENT: 1. Small-bowel obstruction secondary to intussusception. The patient is status post exploratory laparotomy with small-bowel resection and primary repair of umbilical hernia. Today is day 6 postoperative. Nasogastric tube has been removed. The patient is tolerating clear liquids now. Still has not had a bowel movement. 2. Newly diagnosed jejunal mass. 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 As I said, we are still waiting for the immunostains and the final report. 3. History of lung cancer. The patient follows up with Dr. Padgett. 4. History of chronic obstructive pulmonary disease, currently not in exacerbation. 5. Ischemic cardiomyopathy with normal ejection fraction. 6. Severe peripheral vascular disease. 7. Postoperative ileus. The patient is encouraged to be mobile. 8. Normocytic anemia with leukopenia, improving. 9. History of cervical discopathy with radiculopathy. 10. Recently diagnosed left lower extremity deep vein thrombosis. The patient is currently on therapeutic Lovenox. PLAN: So for now, I think Mr. Duncan is doing relatively well. He is tolerating his full liquid diet. He still has not had a bowel movement. We are going to continue with the Clinimix and the lipid infusion. Continue with all his other medications. We will add [place] for pain control and MiraLAX to help move the bowel. cc: Ismael Calvert MD
[2019-05-25] MEDS: DUONEB (A & A) INH SCH ×4 (03:47→21:33)
[2019-05-25] MEDS: CLINIMIX E 4.25%-5% SOLUTION 1,000 ML IV SCH ×3 (04:41→18:14)
[2019-05-25] MEDS: LIPOSYN 20% 250 ML IV SCH ×2 (04:41→06:00)
[2019-05-25] MEDS: PROTONIX IV SCH (04:42)
[2019-05-25] MEDS: LOPRESSOR IV SCH ×4 (04:42→23:18)
[2019-05-25 06:40] LABS: BASO# 0.02 X1000 (0.0-0.2); BASO% 0.6 % (0.0-0.8); EOS# 0.03 X1000 (0.0-0.7); EOS% 0.8 % (0.0-10.0); HEMATOCRIT 32.3 % (42.0-52.0); IMM GRAN# 0.02 X1000 (0.0-0.04); IMM GRAN% 0.6 % (0.0-0.5); LYMPH# 0.72 X1000 (1.2-3.4); LYMPH% 20.2 % (20.5-51.1); MCH 28.6 PG (27-31); MCV 92.3 FL (81-99); MONO# 0.48 X1000 (0.11-0.59); MONO% 13.5 % (1.7-9.3); MPV 9.5 FL (7.4-10.4); NEUT# 2.29 X1000 (1.4-6.5); NEUT% 64.3 % (42.2-75.2); PLT 359 X1000 (130-400); RDW 15.8 % (11.5-14.5); WBC 3.56 X1000 (4.8-10.8)
[2019-05-25] MEDS: MORPHINE IV PRN (08:14)
[2019-05-25] MEDS: LOVENOX SUBQ SCH ×2 (08:18→22:23)
--- NOTE | 2019-05-25 12:36 | GENERAL SURGERY PROGRESS NOTE ---
DATE: 05/25/2019 SUBJECTIVE: The patient reports continued abdominal soreness. He is passing gas. He is tolerating some liquid by mouth without vomiting. He got up to a chair yesterday with Physical Therapy, but not much more than that. OBJECTIVE: Vital Signs: He is afebrile. Vital signs are stable. Urine output 2175 mL. General: He is awake, alert, oriented x3. No acute distress. CV: Regular rate and rhythm. Respiratory: Bilateral equal breath sounds. No work of breathing. GI: Soft, nondistended. He has good bowel sounds. Incisional dressing is clean and dry. He is appropriately tender. LABORATORY DATA: White blood cell count 3.5, hemoglobin 10, hematocrit 32. PATHOLOGY: Pending. ASSESSMENT AND PLAN: A 68-year-old male status post small-bowel resection for a jejunal mass and obstruction. We will advance his diet to a soft diet today. I have encouraged more ambulation. He is still weak and deconditioned. I am going to add Toradol for help with pain, and hopefully help him ambulate more. If he improves his ambulation and maintains decent oral intake, then he may be able to be discharged tomorrow. cc: Octavio Garcia MD
[2019-05-25] MEDS: TORADOL IV SCH ×3 (12:41→23:18)
--- NOTE | 2019-05-25 13:56 | PROGRESS NOTE ---
DATE: 05/25/2019 SUBJECTIVE: Today Mr. Duncan refers to be doing okay. Was having a lot of discomfort in the urethra around the Balderas catheter. We are going to remove it. OBJECTIVE: Current vitals: Blood pressure 155/82, pulse of 102, respirations 20, temperature is 98.5 degrees. The patient is saturating 96% on room air. General exam: Mr. Duncan is a 68-year- old gentleman. He was in bed. He was not in any cardiopulmonary distress, but with slight painful discomfort. HEENT: Mucosa was pink and moist. Anicteric. Acyanotic. Neck: Supple. Chest: Clear to auscultation. No crepitations. No rhonchi. Cardiovascular: Regular rate and rhythm. There was no murmurs, no rubs, no gallops. GI/Abdomen: Soft. There is a midline surgical incision which is still covered with sterile dressing. Bowel sounds are present. Extremities: No pedal edema. Balderas catheter was still in place. 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 LABORATORY DATA: WBC is up to 3.56, hemoglobin is 10.0, platelet count of 3590. Chemistry is also reviewed from yesterday with no changes. IMAGING STUDIES: No new imaging studies. Patient intake/output: Bowel movement has not been documented. However, according to Mr. Duncan, he did use the potty chair today. Urine output has been very adequate. ASSESSMENT: 1. Small bowel obstruction secondary to intussusception. Patient is status post exploratory laparotomy with small bowel resection and primary repair of umbilical hernia. Today is day 7 postoperatively. 2. Newly diagnosed jejunal mass. We are still pending the official pathology report. 3. History of lung cancer. Patient follows up with Dr. Michelle. 4. Chronic obstructive pulmonary disease, currently not in exacerbation. 5. Ischemic cardiomyopathy with normal ejection fraction. 6. Severe peripheral vascular disease on prior imaging studies. 7. Postoperative ileus, improving. 8. Normocytic anemia with leukopenia. That is also improving. 9. History of cervical discopathy and radiculopathy. 10. Recently diagnosed left lower extremity deep vein thrombosis. Patient is on therapeutic Lovenox. PLAN: So, in general, I think Mr. Duncan is fairly stable. He did complain of some issues with the Balderas catheter. We are going to remove this and put him on Pyridium for 2 days to help with the dysuria symptoms. He seems to be tolerating his full liquid diet. Will encourage him to be moving around as well. As he as he improves on his enteral feedings, we will discontinue the Clinimix with a lipid infusion. cc: Ismael Calvert MD
[2019-05-25] MEDS: PYRIDIUM PO SCH ×2 (13:59→22:23)
[2019-05-26] MEDS: DUONEB (A & A) INH SCH ×2 (03:24→11:02)
[2019-05-26] MEDS: PROTONIX IV SCH (05:07)
[2019-05-26] MEDS: LIPOSYN 20% 250 ML IV SCH (05:07)
[2019-05-26] MEDS: LOPRESSOR IV SCH (05:07)
[2019-05-26] MEDS: TORADOL IV SCH (05:07)
[2019-05-26 06:14] LABS: BASO# 0.01 X1000 (0.0-0.2); BASO% 0.3 % (0.0-0.8); EOS# 0.01 X1000 (0.0-0.7); EOS% 0.3 % (0.0-10.0); HEMATOCRIT 29.1 % (42.0-52.0); LYMPH# 0.64 X1000 (1.2-3.4); LYMPH% 17.9 % (20.5-51.1); MCH 28.2 PG (27-31); MCHC 30.9 g/dL (33-37); MCV 91.2 FL (81-99); MONO# 0.43 X1000 (0.11-0.59); MPV 9.5 FL (7.4-10.4); NEUT# 2.48 X1000 (1.4-6.5); NEUT% 69.5 % (42.2-75.2); PLT 350 X1000 (130-400); RBC 3.19 XMIL (4.7-6.1); RDW 15.5 % (11.5-14.5); WBC 3.57 X1000 (4.8-10.8)
[2019-05-26] MEDS: CLINIMIX E 4.25%-5% SOLUTION 1,000 ML IV SCH (08:18)
[2019-05-26] MEDS: LOVENOX SUBQ SCH (09:22)
[2019-05-26] MEDS: PYRIDIUM PO SCH (09:45)
[2019-05-26 11:35] VITALS: BP 160/83
--- NOTE | 2019-05-26 17:21 | GENERAL SURGERY PROGRESS NOTE ---
DATE: 05/26/2019 SUBJECTIVE: The patient denies significant abdominal pain, nausea, or vomiting. He is tolerating a liquid diet and some food, but not eating a lot. He is passing gas. No bowel movement yet. OBJECTIVE: He is afebrile. Vital signs are stable.General: He is awake, alert, and oriented x3. No acute distress. Cardiovascular: Regular rate and rhythm. Respiratory: Bilateral breath sounds. No work of breathing. Gastrointestinal: Soft, nondistended, minimally tender. Incision is clean, dry, and intact. He has good bowel sounds. LABORATORY: CBC was reviewed and stable, no acute changes. ASSESSMENT AND PLAN: A 68-year-old male status post small bowel resection for obstructing mass. The final pathology is pending, but reportedly, it is likely a metastasis from his lung cancer. He is stable. We will discharge him home. He will follow up with me next week and he will follow up with his oncologist, Dr. Padgett, as well. cc: Octavio Garcia MD
--- NOTE | 2019-05-27 16:10 | DISCHARGE SUMMARY ---
ADMISSION DATE: 05/18/2019 DISCHARGE DATE: 05/26/2019 DISPOSITION: Is home. FOLLOW-UP: 1. Dr. Cespedes. 2. Dr. Garcia. 3. Dr. Michelle. CONSULTATION DURING THIS ADMISSION: Surgery was consulted. The patient was seen by Dr. Garcia. INVASIVE PROCEDURES DONE DURING THIS ADMISSION: 1. An exploratory laparotomy with small-bowel resection and primary repair of an umbilical hernia was done by Dr. Garcia on 05/18/2019. 2. 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 IMAGING STUDIES OF SIGNIFICANCE: 1. A CT scan of the abdomen and pelvis on admission did show a high-grade obstruction secondary to intussusception in the mid jejunum, severe atherosclerosis. 2. A chest x-ray did show an NG tube in place. ADMISSION DIAGNOSES: 1. High-grade small bowel obstruction with intussusception. 2. Chronic obstructive pulmonary disease. 3. Lung cancer. 4. Hypertension. 5. Benign prostatic hyperplasia. DIAGNOSES AT THE TIME OF DISCHARGE: 1. Small bowel obstruction secondary to jejunum intussusception. The patient is status post exploratory laparotomy, small-bowel resection and primary repair of an umbilical hernia. 2. Newly diagnosed jejunal mass. 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 3. History of lung cancer, now known to have metastasized to the jejunum. The patient follows up with Dr. Padgett. 4. Chronic obstructive pulmonary disease, currently not in exacerbation. 5. History of ischemic cardiomyopathy with normal ejection fraction. 6. Severe peripheral vascular disease. 7. Postoperative ileus, improved. 8. Normocytic anemia with leukopenia. 9. Recently diagnosed left lower extremity deep vein thrombosis. 10. History of cervical discopathy with radiculopathy. DISCHARGE MEDICATIONS: 1. Gabapentin 300 b.i.d. 2. Lisinopril 40 mg p.o. daily. 3. Trilogy Ellipta 1 puff daily. 4. Xarelto 20 mg p.o. daily. 5. Flomax 0.4 p.o. at bedtime. 6. Tramadol 50 mg b.i.d. 7. Iron sulfate 325 b.i.d. 8. Folic acid 1 mg b.i.d. 9. Metoprolol 25 b.i.d. 10. Robaxin 500 b.i.d. 11. Pantoprazole 40 mg p.o. daily. 12. Amoxiclav 500 p.o. daily. 13. [place] 5 mg q.6 p.r.n. PRESENTING COMPLAINT: Abdominal pain, intractable nausea and vomiting. HISTORY OF PRESENTING COMPLAINT: Mr. Duncan is a 68-year-old gentleman with multiple comorbidities including COPD, lung cancer, recent DVT, severe peripheral vascular disease, who presented to the emergency department because of colicky abdominal pain, followed by nausea and vomiting on multiple occasions. Upon presenting to the emergency department, he was evaluated including a CT scan of the abdomen and pelvis which revealed high-grade small bowel obstruction with intussusception. Mr. Duncan was admitted to the surgical floor for management. HOSPITAL COURSE: An NG tube was put in and Mr. duncan was fluid resuscitated. Pain was managed. Surgery was consulted. The patient was seen by Dr. Garcia. A decision was made to take him to OR for exploratory laparotomy. During the laparotomy, the patient was found to have a jejunal mass, which was resected. A primary umbilical hernia was also repaired. Postoperatively Mr. Duncan continues to show steady progress. NG tube was removed. He was started on a diet. He said he has been passing some gas and today he has some bowel movement. Surgery thinks that from their point, the patient is okay to be discharged and he will follow up with them on an outpatient basis. Mr. Duncan is also advised to follow up with Dr. Parr for his cancer management. All the discharge instructions have been discussed with Mr. Duncan and he voiced understanding. TIME SPENT FOR DISCHARGE: Is 38 minutes. cc: MD Claus Longoria MD Jason R. Seale, MD Heather Shah, MD
== END 2019-05-26 13:29 | disposition home or self-care (01) | DRG 330 ==
LOC: SUPCPDRO → ED 00:10 → SUATTDRO 04:16 → 4N 04:16
PROVIDERS: ATTEND Internal Medicine